=== PATIENT | male | born 1965 | race Caucasian/White ===

== ENCOUNTER 2017-07-09 03:47 | Emergency (ER) | payer OTHER ==
[~2017-07-09] VITALS: Ht 177.8 cm; Wt 170.1 kg
[~2017-07-09 03:47] MED LIST: ACETAMINOPHEN-1 EAC1 PO; PENICILLIN V P500 MG PO; PENICILLIN VK500 MG PO; PREDNISONE 20 M20 M1 PO
[2017-07-09 04:59] VITALS: BP 148/100
== END 2017-07-09 05:03 ==
LOC: M.ERS 03:47
DX: S80.02XA Contusion of left knee, initial encounter (principal); S80.01XA Contusion of right knee, initial encounter; S70.02XA Contusion of left hip, initial encounter; V47.6XXA Car passenger injured in collision with fixed or stationary object in traffic accident, initial encounter; Y93.89 Activity, other specified; Y92.89 Other specified places as the place of occurrence of the external cause; Y99.8 Other external cause status

== ENCOUNTER 2020-09-10 17:31 | Inpatient (IN) | payer MEDICAID ==
[~2020-09-10] VITALS: Ht 188 cm; Wt 192.5 kg
--- NOTE | ~2020-09-10 | EMS ---
[place] [address] EMS Patient Care Report Name: ROLF SAMS Room: [address] IN [facility]#: [id number] Admission: 09/10/20 Attend Phys: Rohini Hylton Discharge: Date of : 67 Report #: [id number] THIS REPORT FOR: //name// Report Transmitted: 09/16/2020 14:37 EMS Care Summary [facility] [employer] [facility] Incident [id number] @ 09/10/2020 16:41 Incident Location [address] [place] [address] Patient ROLF SAMS Male, 54 Years 1965 Patient Address [address] [place] [address] Patient History Chronic Obstructive Pulmonary Disease (COPD),Morbid Obesity, Chief Complaint Shortness Of Breath Disposition Transported [place] Dispatch Reason Breathing Problem Transported To [facility] Narrative Med 1 was dispatched for a [age] year-old male c/o shortness pf breath for the last two days due to his COPD. upon arrival, the patients friend met us at the door and directed us into the kitchen where the patient sat in a office roll around chair leaving against the refrigerator and he was smoking a cigarette. I told the patient," You will need to extinguish that cigarette so that we can provide care to you." The patient mumbled something under his breath and angrily placed the cigarette in the krissy tray. Upon assessment of the patient he had urinated on the chair and himself. The friend reported that [facility] [address] [place] [address] EMS Patient Care Report Name: ROLF SAMS Room: [address] IN [facility].#: [id number] Admission: 09/10/20 Attend Phys: Rohini Hylton Discharge: Date of : 67 Report #: [id number] he had been in the living room and he did the same all over the couch. The patient was yelling at the EMS crew as we were getting vitals and trying to figure out how to move the patient from the chair to the stretcher. Due to the patients weight 550 pounds and he stated," I can not use my feet" it was easiest to place a blanket under his arms and lift him up and moved the stretcher under him. Patient was secured to the stretcher via seatbelts and moved to the ambulance without incident. In the ambulance, the patient was belligerent and kept swinging his arms at the crew. IV access was established in the patients left AC with a 20 GA IV catheter. Patient was given 2 milligrams of Midazolam due to his yelling and swinging at the crew. Patient had been placed on Oxygen in the house via NRB and given a breathing TX of duoneb. Patients lung sounds were decreased on the left side and rales on the right. Patient was monitored through out transport. Hospital report was given via radio with no questions or orders received or requested. Med 1 arrived at the hospital. Patient was moved into the ER without incident to ER room 2. Patient care was transferred to ER staff. Med 1 returned back into service. [id number] Lenin Initial Vitals @17:10P: 104,R: 14,BP: 174/98,GCS: 13,EtCO2: 36,SpO2: 94,Revised Trauma: 12, @17:05P: 72,R: 72,BP: 170/90,Pain: 0/10,GCS: 15,Glucose: 88,SpO2: 72,Revised Trauma: 11, Assessments @17:03MENTAL:No Abnormalities,SKIN:Cold,Pale,HEENT:Neck/Airway: Other,Head/Face: No Abnormalities,LUNG SOUNDS:General: No Abnormalities,ABDOMEN:General: No Abnormalities,PELVIS//GI:EXTREMITIES:Left Arm: Edema,Left Arm: Weakness,Right Arm: Weakness,Right Leg: Edema,Left Leg: Edema,Left Leg: Weakness,Right Arm: Edema,Right Leg: Weakness,PULSE:NEURO:No Abnormalities, Impression Respiratory disorder Procedures @17:05Normal Saline (.9% NaCl) 10cc (20 ga) Site: Antecubital-LeftResponse: UnchangedSucceeded@17:06Midazolam - 2 Milligrams (mg) - Intravenous (IV)Response: Improved@16:48Oxygen FlowRate: 12 Device: Non Re-breather Mask (NRB) Response: [place] [address] EMS Patient Care Report Name: LATRELLROLF Breonna Room: [address] IN [facility]#: [id number] Admission: 09/10/20 Attend Phys: Rohini Hylton Discharge: Date of : 67 Report #: [id number] Timeline 16:41,Call Received 16:41,Dispatched 16:43,En Route 16:44,On Scene 16:45,At Patient 16:48,Oxygen FlowRate: 12 Device: Non Re-breather Mask (NRB) Response: ImprovedSucceeded, 17:05,BP: 170/90 M,PULSE: 72,RR: 72 R,SPO2: 72 Ox,ETCO2: ,B,PAIN: 0,GCS: 15, 17:05,Normal Saline (.9% NaCl) 10cc 20 ga Site: Antecubital-Left,Response: UnchangedSucceeded, 17:06,Midazolam - 2 Milligrams (mg) - Intravenous (IV),Response: Improved 17:09,Depart Scene 17:10,BP: 174/98 M,PULSE: 104,RR: 14 R,SPO2: 94 Ox,ETCO2: 36 ,BG: ,PAIN: ,GCS: 13, 17:27,At Destination 17:59,Call Closed 17:59,In District Disclaimer v1.1 Copyright 2020 [employer] This EMS Care Summary contains data elements from the applicable legal record (which may be displayed differently). It is designed to provide pertinent information for the following purposes: continuity of care, clinical quality, and state data reporting. The complete legal record is available to ED staff and administrators of the receiving hospital in ES's Patient Tracker. All data is provided "as is."
[2020-09-10 17:39] VITALS: BP 125/79
[2020-09-10 18:02] LABS: ABSOLUTE LYMPHOCYTES 1.5 thou/uL (0.8-5.3); ABSOLUTE MONOCYTES 0.5 thou/uL (0.0-1.2); ABSOLUTE NEUTROPHILS 10.8 thou/uL (1.6-8.1); BASOPHILS 0.3 %; HEMATOCRIT 36.7 % (42.0-52.0); HEMOGLOBIN 11.3 gm/dL (14.0-18.0); LYMPHOCYTES 11.6 %; MCHC 30.9 g/dL (28.0-37.0); MCV 80.9 fL (80.0-100.0); MONOCYTES 3.8 %; MPV 7.9 fl. (7.2-11.1); NUCLEATED RBCS 0 /100WBC; PLATELET COUNT* 256 thou/uL (150-400); POLYS 84.3 %; RBC 4.54 mil/uL (4.50-6.00); RDW-CV 18.7 % (10.5-14.5); WBC 12.8 thou/uL (4.0-11.0)
[2020-09-10 18:06] LABS: BE 0.4 mmol/L (-2 to +3); PO2 102.3 mmHg (75.0-100.0)
[2020-09-10 18:09] LABS: PCO2 91.5 mmHg (35.0-45.0); pH 7.158 (7.340-7.450)
[2020-09-10 18:09] LABS: APTT 26.9 Seconds (25.0-31.3); CALCIUM 8.2 mg/dL (8.5-10.1); INR 1.9; PROTIME 19.5 Seconds (9.20-11.50)
[2020-09-10 18:13] LABS: POTASSIUM 6.2 mmol/L (3.5-5.1)
[2020-09-10 18:29] LABS: ALBUMIN 2.4 g/dL (3.4-5.0); MAGNESIUM 2.1 mg/dL (1.8-2.4); TOTAL PROTEIN 7.7 g/dL (6.4-8.2)
[2020-09-10 20:21] LABS: BE 2.7 mmol/L (-2 to +3); PO2 98.5 mmHg (75.0-100.0); pH 7.321 (7.340-7.450)
[2020-09-10 20:25] LABS: PCO2 59.3 mmHg (35.0-45.0)
[2020-09-10 20:30] VITALS: BP 140/97
[2020-09-10 21:00] VITALS: BP 143/92
[2020-09-10 21:20] LABS: URINE BLOOD 1+ (Negative); URINE CLARITY CLOUDY; URINE COLOR DARK YELLOW; URINE GLUCOSE-RANDOM NEGATIVE (Negative); URINE KETONES TRACE (Negative); URINE NITRITE-REFLEX NEGATIVE (Negative); URINE PROTEIN 2+ (Negative); URINE SPECIFIC GRAVITY 1.015 (1.005-1.030)
[2020-09-10 21:27] LABS: ICTOTEST (BILI CONFIRMATORY) Positive (Negative); URINE BILIRUBIN 1+ (Negative); URINE LEUKOCYTES-REFLEX 2+ (Negative)
[2020-09-10 21:30] LABS: SQUAMOUS 4-10 Moderate /LPF (0-3); TRIPLE PHOSPHATE CRYSTALS >10 Many /LPF (None Seen)
[2020-09-10 21:31] LABS: BACTERIA-REFLEX >30 Many /HPF (None Seen); MUCUS None Seen strn/LPF (None Seen); URINE RBC 0-2 Rare /HPF (0-2); URINE WBC-REFLEX 6-15 Few /HPF (0-5)
[2020-09-10 21:33] LABS: HYALINE CASTS 4-10 Moderate /LPF (None Seen)
[2020-09-10 22:00] VITALS: BP 131/97
[2020-09-10 23:01] VITALS: BP 150/100
[2020-09-11] VITALS (25 sets, daily range): BP systolic 105–169; BP diastolic 60–112
[2020-09-11 03:49] LABS: CALCIUM 8.2 mg/dL (8.5-10.1); CREATININE 1.3 mg/dL (0.6-1.3)
[2020-09-11 03:56] LABS: POTASSIUM 4.8 mmol/L (3.5-5.1)
[2020-09-11 04:42] LABS: HEMATOCRIT 34.1 % (42.0-52.0); HEMOGLOBIN 10.6 gm/dL (14.0-18.0); MCH 25.1 pg (26.0-34.0); MCHC 31.2 g/dL (28.0-37.0); MCV 80.3 fL (80.0-100.0); MPV 8.3 fl. (7.2-11.1); RBC 4.24 mil/uL (4.50-6.00); RDW-CV 18.5 % (10.5-14.5); WBC 9.1 thou/uL (4.0-11.0)
--- NOTE | 2020-09-11 13:49 | 2DMMODE ---
[place] [address] 2 D/M-MODE ECHOCARDIOGRAM Name: LATRELLROLF Ravi Room: [address] IN .R.#: [id number] Admission: 09/10/20 Attend Phys: Jatinder Riley Discharge: Date of : 67 Date of Service: 09/11/20 1349 Report #: [id number] THIS REPORT FOR: cc: FAM - No family physician/PCP LETA - No family physician/PCP Ramez Parker MD [facility] ~ APPROVED REPORT Study performed: 09/11/2020 10:06:06 EXAM: Comprehensive 2D, Doppler, and color-flow Echocardiogram Patient Location: Bedside BSA: 3.15 HR: 82 bpm BP: 113/70 mmHg Other Information Study Quality: Technically Difficult Technically limited study due to body habitus, poor endocardial definition, inability to position patient. Indications Congestive Heart Failure Echo Enhancing Agent Indication: Endocardial border delineation Agent(s) / Amount(s) Used: Definity 4 cc 2D Dimensions IVSd: 15.30 (7-11mm) LVOT Diam: 20.14 (18-24mm) LVDd: 52.32 mm PWd: 18.45 (7-11mm) Ascending Ao: 40.14 (22-36mm) LVDs: 35.44 (25-40mm) Aortic Root: 31.31 mm Volumes Left Atrial Volume (Systole) LA ESV Index: 21.30 mL/m2 Aortic Valve AoV Peak Luis.: 1.74 m/s AO Peak Gr.: 12.05 mmHg LVOT Max P.88 mmHg AO Mean Gr.: 6.58 mmHg LVOT [place]66 [place] [address] 2 D/M-MODE ECHOCARDIOGRAM Name: ROLF SAMS Room: [address] IN [facility].#: [id number] Admission: 09/10/20 Attend Phys: Jatinder Riley Discharge: Date of : 67 Date of Service: 09/11/20 1349 Report #: [id number] LVOT Max V: 1.10 m/s AO V2 VTI: 30.61 cm LVOT Mean V: 0.77 m/s BOB (VTI): 2.92 cm2 LVOT V1 VTI: 28.00 cm Mitral Valve E/A Ratio: 1.50 MV Decel. Time: 97.14 ms MV E Max Luis.: 0.49 m/s MV PHT: 28.17 ms MVA (PHT): 7.81 cm2 TDI E/Lateral E': 7.00 E/Medial E': 7.00 Medial E' Luis.: 0.07 m/s Lateral E' Luis.: 0.07 m/s Pulmonary Valve PV Peak Luis.: 0.89 m/s PV Peak Gr.: 3.15 mmHg Tricuspid Valve RAP Estimate: 20.00 mmHg TR Peak Gr.: 27.19 mmHg RVSP: 47.19 mmHg PA Pressure: 47.19 mmHg Left Ventricle The left ventricle is normal size. There is moderate diffuse hypokinesis of left ventricular wall motion. Moderate concentric left ventricular hypertrophy. Left ventricular systolic function is moderately decreased. LVEF is 35-40%. Right Ventricle Right ventricle is mildly dilated. The right ventricular systolic function is normal. Atria The left atrium size is normal. Right atrium is dilated. Aortic Valve Mild aortic valve sclerosis. No aortic regurgitation is present. There is no aortic valvular stenosis. Mitral Valve The mitral valve is normal in structure. There is no mitral valve regurgitation noted. No evidence of mitral valve stenosis[place] [address] 2 D/M-MODE ECHOCARDIOGRAM Name: ROLF SAMS Room: [address]#: [id number] Admission: 09/10/20 Attend Phys: Jatinder Riley Discharge: Date of : 67 Date of Service: 09/11/20 1349 Report #: [id number] The tricuspid valve is normal in structure. Mild tricuspid regurgitation. Pulmonic Valve The pulmonary valve is normal in structure. There is no pulmonic valvular regurgitation. Great Vessels The aortic root is normal in size. The ascending aorta is mildly dilated. IVC is dilated. Pericardium Mild pericardial effusion. <Conclusion> The left ventricle is normal size. Moderate concentric left ventricular hypertrophy. Left ventricular systolic function is moderately decreased. LVEF is 35-40%. Right ventricle is mildly dilated. The left atrium size is normal. Mild aortic valve sclerosis. No aortic regurgitation is present. There is no aortic valvular stenosis. The mitral valve is normal in structure. The tricuspid valve is normal in structure. Mild tricuspid regurgitation. IVC is dilated. Mild pericardial effusion. There is moderate diffuse hypokinesis of left ventricular wall motion. <ELECTRONICALLY SIGNED> By: Ramez Parker MD, FACC 09/11/20 1349 48 1349 Ramez Parker MD, FACC /INF
--- NOTE | 2020-09-11 14:24 | EKG ---
[place] [address] ELECTROCARDIOGRAM REPORT Name: ROLF SAMS Room: [address] IN ..#: [id number] Admission: 09/10/20 Attend Phys: Jatinder Riley Discharge: Date of : 67 Date of Service: 09/10/20 1735 Report #: [id number] THIS REPORT FOR: //name// [facility] ED Test Date: 2020-09-10 Test Time: 17:35:54 Pat Name: ROLF SAMS Department: Room: [facility] Gender: M Residential Instructor: WALDEMAR : 1965 Requested By: Salo Gatica Order Number: [id number] MD: Ramez Parker Measurements Intervals [place] Rate: 128 P: 57 [place]: 133 QRS: -47 QRSD: 155 T: -18 QT: 318 QTc: 464 Interpretive Statements Sinus tachycardia RBBB and LAFB Baseline wander in lead(s) I,III,aVL No previous ECG available for comparison Electronically Signed On 09-11-2020 14:24:24 CDT by Ramez Parker [email or web address] <ELECTRONICALLY SIGNED> By: Ramez Parker MD, [facility] 09/11/20 1424 1735 1735 Ramez Parker MD, [facility] /EPI
[2020-09-11 18:16] LABS: CALCIUM 8.3 mg/dL (8.5-10.1); CREATININE 1.1 mg/dL (0.6-1.3); MAGNESIUM 2.1 mg/dL (1.8-2.4); POTASSIUM 3.9 mmol/L (3.5-5.1)
[2020-09-12] VITALS (12 sets, daily range): BP systolic 86–120; BP diastolic 47–73
[2020-09-12 02:06] LABS: GLYCOHEMOGLOBIN (HGB A1C) 6.3 % (4.8-5.6)
[2020-09-12 03:57] LABS: HEMATOCRIT 33.4 % (42.0-52.0); HEMOGLOBIN 10.5 gm/dL (14.0-18.0); MCH 25.2 pg (26.0-34.0); MCHC 31.5 g/dL (28.0-37.0); MPV 8.1 fl. (7.2-11.1); NUCLEATED RBCS 0 /100WBC; PLATELET COUNT* 163 thou/uL (150-400); RBC 4.17 mil/uL (4.50-6.00); RDW-CV 18.2 % (10.5-14.5); WBC 9.3 thou/uL (4.0-11.0)
[2020-09-12 04:14] LABS: ALBUMIN 1.7 g/dL (3.4-5.0); CALCIUM 8.1 mg/dL (8.5-10.1); CREATININE 1.1 mg/dL (0.6-1.3); MAGNESIUM 2.1 mg/dL (1.8-2.4); POTASSIUM 4.4 mmol/L (3.5-5.1); TOTAL BILIRUBIN 1.1 mg/dL (<0.1-1.0); TOTAL PROTEIN 6.2 g/dL (6.4-8.2)
[2020-09-12 04:15] LABS: PHOSPHORUS* 3.1 mg/dL (2.5-4.9)
[2020-09-12 05:29] LABS: ABSOLUTE LYMPHOCYTES 0.4 thou/uL (0.8-5.3); ABSOLUTE MONOCYTES 0.3 thou/uL (0.0-1.2); ABSOLUTE NEUTROPHILS 8.6 thou/uL (1.6-8.1); ANISOCYTOSIS 1+; PLATELET ESTIMATE ADEQUATE; POIKILOCYTOSIS 1+
[2020-09-12 08:34] LABS: BE 6.5 mmol/L (-2 to +3); PO2 77.7 mmHg (75.0-100.0); pH 7.405 (7.340-7.450)
[2020-09-12 17:27] LABS: ABSOLUTE LYMPHOCYTES 0.4 thou/uL (0.8-5.3); ABSOLUTE MONOCYTES 0.3 thou/uL (0.0-1.2); ABSOLUTE NEUTROPHILS 8.3 thou/uL (1.6-8.1); BASOPHILS 0.2 %; HEMATOCRIT 36.3 % (42.0-52.0); HEMOGLOBIN 11.3 gm/dL (14.0-18.0); LYMPHOCYTES 4.3 %; MCHC 31.2 g/dL (28.0-37.0); MCV 80.2 fL (80.0-100.0); MONOCYTES 3.1 %; MPV 8.3 fl. (7.2-11.1); NUCLEATED RBCS 0 /100WBC; PLATELET COUNT* 156 thou/uL (150-400); POLYS 92.4 %; RBC 4.52 mil/uL (4.50-6.00); RDW-CV 18.6 % (10.5-14.5)
[2020-09-12 17:38] LABS: CALCIUM 8.4 mg/dL (8.5-10.1); CREATININE 1.2 mg/dL (0.6-1.3); MAGNESIUM 2.2 mg/dL (1.8-2.4); POTASSIUM 4.8 mmol/L (3.5-5.1)
[2020-09-12 18:01] LABS: AMP/METHAMP POSITIVE (Negative); BARBITURATES Negative (Negative); BENZODIAZEPINES POSITIVE (Negative); COCAINE Negative (Negative); METHADONE Negative (Negative); OPIATES Negative (Negative); PCP Negative (Negative); THC Negative (Negative)
[2020-09-13] VITALS (34 sets, daily range): BP systolic 124–189; BP diastolic 79–129
[2020-09-13 03:13] LABS: HEMATOCRIT 37.9 % (42.0-52.0); HEMOGLOBIN 11.9 gm/dL (14.0-18.0); MCH 25.1 pg (26.0-34.0); MCHC 31.4 g/dL (28.0-37.0); MCV 79.8 fL (80.0-100.0); MPV 7.7 fl. (7.2-11.1); RBC 4.75 mil/uL (4.50-6.00); RDW-CV 18.6 % (10.5-14.5)
[2020-09-13 03:41] LABS: ALBUMIN 2.1 g/dL (3.4-5.0); CALCIUM 8.4 mg/dL (8.5-10.1); CREATININE 1.2 mg/dL (0.6-1.3); MAGNESIUM 2.1 mg/dL (1.8-2.4); POTASSIUM 4.9 mmol/L (3.5-5.1); TOTAL PROTEIN 7.1 g/dL (6.4-8.2)
[2020-09-13 06:06] LABS: HEPATITIS B SURFACE AG Negative (Negative)
[2020-09-13 13:09] LABS: HEMATOCRIT 39.5 % (42.0-52.0); HEMOGLOBIN 12.3 gm/dL (14.0-18.0); MCHC 31.2 g/dL (28.0-37.0); MPV 8.4 fl. (7.2-11.1); NUCLEATED RBCS 0 /100WBC; PLATELET COUNT* 152 thou/uL (150-400); RBC 4.94 mil/uL (4.50-6.00); RDW-CV 19.3 % (10.5-14.5)
[2020-09-13 13:20] LABS: CALCIUM 8.4 mg/dL (8.5-10.1); CREATININE 1.2 mg/dL (0.6-1.3); MAGNESIUM 2.1 mg/dL (1.8-2.4); POTASSIUM 4.7 mmol/L (3.5-5.1)
[2020-09-13 13:36] LABS: ABSOLUTE LYMPHOCYTES 0.8 thou/uL (0.8-5.3); ABSOLUTE MONOCYTES 0.1 thou/uL (0.0-1.2); ABSOLUTE NEUTROPHILS 8.1 thou/uL (1.6-8.1); PLATELET ESTIMATE ADEQUATE
[2020-09-14] VITALS (28 sets, daily range): BP systolic 127–192; BP diastolic 66–116
[2020-09-14 03:49] LABS: ABSOLUTE BASOPHILS 0.1 thou/uL (0.0-0.2); ABSOLUTE LYMPHOCYTES 0.4 thou/uL (0.8-5.3); ABSOLUTE MONOCYTES 0.3 thou/uL (0.0-1.2); ABSOLUTE NEUTROPHILS 6.6 thou/uL (1.6-8.1); HEMATOCRIT 39.1 % (42.0-52.0); HEMOGLOBIN 12.5 gm/dL (14.0-18.0); MCH 25.2 pg (26.0-34.0); MCHC 31.9 g/dL (28.0-37.0); MONOCYTES 3.6 %; MPV 8.3 fl. (7.2-11.1); NUCLEATED RBCS 0 /100WBC; PLATELET COUNT* 142 thou/uL (150-400); POLYS 90.4 %; RBC 4.94 mil/uL (4.50-6.00); RDW-CV 18.9 % (10.5-14.5); WBC 7.3 thou/uL (4.0-11.0)
[2020-09-14 04:15] LABS: ALBUMIN 1.9 g/dL (3.4-5.0); CREATININE 1.2 mg/dL (0.6-1.3); PHOSPHORUS* 4.1 mg/dL (2.5-4.9); POTASSIUM 4.3 mmol/L (3.5-5.1); TOTAL BILIRUBIN 1.1 mg/dL (<0.1-1.0); TOTAL PROTEIN 6.8 g/dL (6.4-8.2)
[2020-09-14 17:03] LABS: CALCIUM 8.4 mg/dL (8.5-10.1); MAGNESIUM 2.1 mg/dL (1.8-2.4); POTASSIUM 4.1 mmol/L (3.5-5.1)
[2020-09-15] VITALS (26 sets, daily range): BP systolic 135–177; BP diastolic 78–105
[2020-09-15 03:33] LABS: ABSOLUTE LYMPHOCYTES 0.4 thou/uL (0.8-5.3); ABSOLUTE MONOCYTES 0.2 thou/uL (0.0-1.2); ABSOLUTE NEUTROPHILS 4.9 thou/uL (1.6-8.1); BASOPHILS 0.2 %; EOSINOPHILS 0.1 %; HEMATOCRIT 41.8 % (42.0-52.0); HEMOGLOBIN 13.1 gm/dL (14.0-18.0); LYMPHOCYTES 6.7 %; MCHC 31.3 g/dL (28.0-37.0); MONOCYTES 3.3 %; MPV 8.3 fl. (7.2-11.1); NUCLEATED RBCS 0 /100WBC; PLATELET COUNT* 122 thou/uL (150-400); POLYS 89.7 %; RBC 5.23 mil/uL (4.50-6.00); RDW-CV 19.1 % (10.5-14.5); WBC 5.4 thou/uL (4.0-11.0)
[2020-09-15 03:51] LABS: ALBUMIN 2.4 g/dL (3.4-5.0); CALCIUM 8.5 mg/dL (8.5-10.1); TOTAL BILIRUBIN 1.4 mg/dL (<0.1-1.0); TOTAL PROTEIN 6.6 g/dL (6.4-8.2)
[2020-09-16] VITALS (36 sets, daily range): BP systolic 111–177; BP diastolic 57–109
[2020-09-16 04:14] LABS: ABSOLUTE LYMPHOCYTES 0.6 thou/uL (0.8-5.3); ABSOLUTE MONOCYTES 0.5 thou/uL (0.0-1.2); ABSOLUTE NEUTROPHILS 4.8 thou/uL (1.6-8.1); BASOPHILS 0.2 %; HEMOGLOBIN 12.8 gm/dL (14.0-18.0); LYMPHOCYTES 10.4 %; MCH 25.1 pg (26.0-34.0); MCHC 31.2 g/dL (28.0-37.0); MCV 80.5 fL (80.0-100.0); MONOCYTES 8.7 %; MPV 8.6 fl. (7.2-11.1); NUCLEATED RBCS 0 /100WBC; PLATELET COUNT* 127 thou/uL (150-400); POLYS 80.7 %; RDW-CV 19.5 % (10.5-14.5)
[2020-09-16 04:28] LABS: ALBUMIN 2.6 g/dL (3.4-5.0); CALCIUM 8.5 mg/dL (8.5-10.1); CREATININE 0.8 mg/dL (0.6-1.3); POTASSIUM 4.2 mmol/L (3.5-5.1); TOTAL PROTEIN 6.2 g/dL (6.4-8.2)
[2020-09-16 10:14] LABS: INR 1.4
[2020-09-16 11:24] LABS: BE 9.4 mmol/L (-2 to +3); PO2 77.3 mmHg (75.0-100.0); pH 7.357 (7.340-7.450)
[2020-09-16 11:26] LABS: PCO2 68.6 mmHg (35.0-45.0)
--- NOTE | 2020-09-16 15:08 | CON ---
[address] [address] CONSULTATION Name: ROLF SAMS Room: [address] IN .R.#: [id number] Admission: 09/10/20 Attend Phys: Rohini Hylton Discharge: Date of : 67 Report #: [id number] THIS REPORT FOR: cc: LETA - No family physician/PCP LETA - No family physician/PCP Migue Ervin MD ~ DOC #: [id number] Migue Ervin MD DATE OF CONSULTATION: 09/11/2020 Consult has been requested by the Hospitalist service. INDICATION FOR CONSULTATION: Ventilator management. HISTORY OF PRESENT ILLNESS: This is a 54-year-old gentleman. He has a history of morbid obesity, body mass index is 62. He has a history consistent with COPD as well as obstructive sleep apnea. It is not known to me as to whether the patient was previously diagnosed with these conditions. The patient was now found to be in respiratory distress. In fact, he was smoking, even though his O2 saturations were in the 70s. The patient also is reported to have been agitated and required endotracheal intubation for respiratory distress. The patient currently is on the ventilator. He did have significant hypercarbia and a low pH of 7.158 on initial arterial blood gases. He currently is on 50% FIO2 with 5 of PEEP. The patient is receiving propofol at 50 for sedation. He initially was also in acute renal failure. His creatinine was 2.0. He was bolused with IV fluids. His creatinine subsequently improved to 1.3. He does not have current running IV fluids. The patient is on the ventilator and therefore is unable to provide a further history or review of systems. PAST MEDICAL HISTORY: Morbid obesity, body mass index is 62. There is a clinical history consistent with COPD and obstructive sleep apnea, it is not known to me as to whether the patient was diagnosed with these in the past. Chronic venous insufficiency in lower extremities. SOCIAL HISTORY: He is an active smoker, further details are not available. ALLERGIES: Unknown. FAMILY HISTORY: Unknown. HOME MEDICATIONS: Unknown. Current medications in [employer] reviewed. PHYSICAL EXAMINATION: VITAL SIGNS: He is sedated with propofol at 50, has a pulse of 77 and blood pressure of 121/82. He is saturating 95%. [place] [address] CONSULTATION Name: LATRELLROLF Breonna Room: [address]#: [id number] Admission: 09/10/20 Attend Phys: Rohini Hylton Discharge: Date of : 67 Report #: [id number] ventilation, tidal volume is 600, AC rate is set at 20. He was not overbreathing the ventilator. Heart rate was 77. He was afebrile with a temperature of 35.8. HEENT: Head is normocephalic and atraumatic. Endotracheal tube was in good position. NECK: Does not show raised JVP, asymmetry, mass or lymph nodes. CHEST: Symmetrical expansion on inspection and palpation. On auscultation, breath sounds are bilaterally equal, but decreased. I do not hear any added sounds. HEART: Regular. There is no murmur. ABDOMEN: Soft and nontender. EXTREMITIES: Lower extremities show 1+ edema. There is significant chronic venous changes noted on his skin. NEUROLOGIC: He did move all extremities to pain. No focal deficit identified. LABORATORY DATA: The patient's chest x-ray is reviewed. There is some increase in reticular markings, which could indicate atypical infiltrates, chronic changes and mild increase in pulmonary vascular congestion can also lead to this picture. I do not have a previous x-ray available to compare. The patient's arterial blood gas as well as lab work is in [facility] and this is reviewed. The patient has blood cultures positive for gram-negative rods. His COVID-19 antigen was negative. ASSESSMENT AND PLAN: 1. Acute on chronic hypercarbic and hypoxemic respiratory failure. I will go ahead and increase his tidal volume to 650, which will be 8 mL/kg ideal body weight, decrease rate to 16, continue to titrate FIO2, increase PEEP to 8 considering morbid obesity. We will continue with propofol. We will add a fentanyl drip, which hopefully will let us cut down his propofol. We will assess tomorrow for weaning. If he is not ready for weaning tomorrow, then I will consider switching his propofol over to Precedex tomorrow. Follow propofol related labs. 2. Pulmonary infiltrates/gram-negative bacteremia. For now, I ordered Zosyn as well as Levaquin. We will reassess antibiotics once final cultures are available. I did order a sputum culture as well as a nasal swab for MRSA now. My suspicion of MRSA is low; therefore, not covering for now, but if he deteriorates, then I will consider linezolid. 3. Chronic obstructive pulmonary disease exacerbation. Agree with nebulized bronchodilators as well as Solu-Medrol as currently prescribed. 4. Obstructive sleep apnea. He likely will need a BiPAP. When he is extubated, we will plan to arrange a Trilogy for him before his discharge. 5. Evaluation for thromboembolic phenomena/cardiac function, we will do an echo. We will also do venous Dopplers. Hold off on CTA chest considering renal failure. [facility] [address] [place] [address] CONSULTATION Name: ROLF SAMS Room: [address] IN [facility]#: [id number] Admission: 09/10/20 Attend Phys: Rohini Hylton Discharge: Date of : 67 Report #: [id number] 6. Acute renal failure. I have started IV fluids at 50. Repeat labs at 5:00 p.m. and then adjust IV fluids rate. 7. Deep venous thrombosis prophylaxis, on Lovenox. 8. Gastrointestinal prophylaxis, on Protonix. 9. Clostridium difficile prophylaxis. We will go ahead and add Lactinex. The patient is critically ill at this time. Total time spent providing critical care to this patient today exceeds 45 minutes. Migue Ervin MD AP/NIS <ELECTRONICALLY SIGNED> By: Migue Ervin MD 09/16/20 1508 1128 [id number] Ervin MD /nt
[2020-09-16 17:27] LABS: ANION GAP < 0 mmol/L (7-16); BUN 37 mg/dL (7-18); CALCIUM 8.3 mg/dL (8.5-10.1); CHLORIDE 110 mmol/L (98-107); CO2 39 mmol/L (21-32); CREATININE 0.8 mg/dL (0.6-1.3); GLUCOSE 172 mg/dL (70-99); POTASSIUM 4.5 mmol/L (3.5-5.1); SODIUM 148 mmol/L (136-145)
[2020-09-17] VITALS (17 sets, daily range): BP systolic 104–158; BP diastolic 62–83
[2020-09-17 04:37] LABS: HEMATOCRIT 38.1 % (42.0-52.0); HEMOGLOBIN 11.8 gm/dL (14.0-18.0); MCH 24.8 pg (26.0-34.0); MCHC 30.9 g/dL (28.0-37.0); MCV 80.1 fL (80.0-100.0); MPV 8.4 fl. (7.2-11.1); RBC 4.76 mil/uL (4.50-6.00); RDW-CV 19.1 % (10.5-14.5)
[2020-09-17 05:05] LABS: ALBUMIN 2.5 g/dL (3.4-5.0); ALKALINE PHOSPHATASE 59 U/L (46-116); ANION GAP < 0 mmol/L (7-16); BUN 34 mg/dL (7-18); CALCIUM 8.1 mg/dL (8.5-10.1); CHLORIDE 109 mmol/L (98-107); CO2 39 mmol/L (21-32); CREATININE 0.7 mg/dL (0.6-1.3); GLUCOSE 112 mg/dL (70-99); MAGNESIUM 1.9 mg/dL (1.8-2.4); POTASSIUM 4.3 mmol/L (3.5-5.1); SGOT 27 U/L (15-37); SGPT 140 U/L (30-65); SODIUM 147 mmol/L (136-145); TOTAL BILIRUBIN 1.1 mg/dL (<0.1-1.0); TOTAL PROTEIN 5.7 g/dL (6.4-8.2)
--- NOTE | 2020-09-17 14:52 | CON ---
[address] [address] CONSULTATION Name: ROLF SAMS Room: [address] IN .R.#: [id number] Admission: 09/10/20 Attend Phys: Rohini Hylton Discharge: Date of : 67 Report #: [id number] THIS REPORT FOR: cc: FAM - No family physician/PCP FAM - No family physician/PCP Jeanette Beach MD ~ DOC #: [id number] Jeanette Beach MD DATE OF CONSULTATION: 09/13/2020 REASON FOR CONSULTATION: Coffee-ground material noted in the NG tube aspirate. HISTORY OF PRESENT ILLNESS: This is a 54-year-old male with history of hypercapnic COPD and morbid obesity who presented to emergency room on 09/10/2020. At that time, the patient's oxygen saturation was 70%. The patient was intubated due to acute over chronic respiratory failure. He also has heart failure, which may have complicated his respiration. The patient takes Lovenox for history of DVT. His INR as of today is 1.9. The patient is intubated, so all the records have been obtained from other medical records. The patient currently is on antibiotics for bacteremia, gram-negative. He is sedated and nonresponsive. His hemoglobin this morning was 11.9 and on a repeat is 12.3. He has been initiated on Protonix drip after loading him with 80 mg of Protonix IV. PAST MEDICAL HISTORY: Significant for history of COPD, hyperkalemia, DVT, use of anticoagulation therapy, CHF, morbid obesity with a body mass index of 62, sleep apnea, venous insufficiency of lower extremities. ALLERGIES: Please refer to JUL. MEDICATIONS: Please refer to JUL. SOCIAL HISTORY: Please refer to the history and physical dictated on 09/10/2000. FAMILY HISTORY: Please refer to the history and physical dictated on 09/10/2000. PHYSICAL EXAMINATION: VITAL SIGNS: Reveals blood pressure of 184/119, respirations 16, pulse 75, temperature 99.3. The patient is intubated. ABDOMEN: [place] [address] CONSULTATION Name: LATRELLROLF W Room: [address] IN [facility]#: [id number] Admission: 09/10/20 Attend Phys: Rohini Hylton Discharge: Date of : 67 Report #: [id number] EXTREMITIES: There is bilateral pitting edema in the lower extremities. CARDIOVASCULAR: Regular rate. LABORATORY DATA: Reveal sodium of 142, potassium 4.7, BUN is 47, creatinine is 1.2, glucose is 164. ALT is 255, alkaline phosphatase 86, ALT is 606. Albumin is 2.1. Iron saturation is 4, B12 is 5000, hemoglobin A1c is 6.3. INR is 1.9. WBC is 9.0 with hemoglobin of 12.3 and platelets of 152. ASSESSMENT AND PLAN: The patient with a history of COPD and acute over chronic respiratory failure, who also have sleep apnea, was intubated since hospitalization. He also found to have bacteremia, on antibiotics. NG tube aspirate had some coffee-ground material, but hemoglobin is stable and the patient also hemodynamically stable. I agree with initiation of Protonix drip for now. We may switch it to IV Protonix b.i.d. later based on his hemoglobin. The patient also has elevated LFTs. I believe this is more acute over chronic liver disease. The patient also has elevated CPK, which may be an indicator of rhabdomyolysis, which may artificially increased LFTs. We will continue to monitor the patient. I would recommend checking LFTs in the morning and a GGT. Also, abdominal ultrasound to look at biliary tree. We will continue to follow up the patient. MD SEVEN Baca/HARPER/ELISHA <ELECTRONICALLY SIGNED> By: Jeanette Beach MD 09/17/20 1452 1245 1502Jeanette Beach MD /giles
--- NOTE | 2020-09-17 14:52 | CON ---
[address] [address] CONSULTATION Name: LATRELLROLF Breonna Room: [address] IN ..#: [id number] Admission: 09/10/20 Attend Phys: Rohini Hylton Discharge: Date of : 67 Report #: [id number] THIS REPORT FOR: cc: FAM - No family physician/PCP FAM - No family physician/PCP Jeanette Beach MD ~ DOC #: [id number] CEZAR Bravo DATE OF CONSULTATION: 09/16/2020 The patient does not have a PCP. Please note that at the time of this dictation, the patient was seen by myself. REASON FOR CONSULTATION: Elevated LFTs. HISTORY OF PRESENT ILLNESS: This is a 54-year-old male with a longstanding history of COPD and morbid obesity that was brought. EMS was called because he was staying at a friend's house and was having increased shortness of breath for the last 2 days prior to EMS arrival. When EMS was there, they noted that his sats were in the 70s, they were noticed that he was smoking a cigarette at the time of their arrival as well. He was then on BiPAP en route and then shortly thereafter. He has been intubated since that time. On admission, they questioned whether or not he has a GI bleed, but no obvious bleeding has been noted. He has not had a bowel movement since prior to admission and lactulose has been started. The patient on admission had elevated LFTs; total bilirubin was 3, alkaline phosphatase 111, ALT was 1005 and AST 1708. He did have a positive drug screen for meth and benzos, and his BNP was greater than 12,000. Since he has been intubated in here, he has bee getting albumin and his LFTs have all almost come back down to normal except his ALT and AST. Unable to obtain any history from the patient secondary to him being noncommunicative while on the ventilator and all of that has been obtained from his chart. ALLERGIES: No known drug allergies. MEDICATIONS FROM HOME: Unknown. PERSONAL HISTORY: COPD. SURGICAL HISTORY: Unknown. FAMILY HISTORY: Unknown. SOCIAL HISTORY: He is a tobacco user, and positive for meth noted on drug screen. The patient is morbidly obese at [address] [place] [address] CONSULTATION Name: LATRELLORLF Breonna Room: [address]#: [id number] Admission: 09/10/20 Attend Phys: Rohini Hylton Discharge: Date of : 67 Report #: [id number] REVIEW OF SYSTEMS: Twelve-point review of systems is essentially negative except what is mentioned in the HPI. PHYSICAL EXAMINATION: VITAL SIGNS: Temperature 36.8, pulse 53, respirations 16, blood pressure 153/90. HEART: Regular rate and rhythm. LUNGS: Diminished bilaterally with some expiratory wheezes noted. ABDOMEN: Soft, rotund, positive bowel sounds in all 4 quadrants, with no masses or tenderness noted, and an umbilical hernia noted. LABORATORY DATA: Hemoglobin is 12.8, white count is 6, platelets are 127. BUN is 40, creatinine is 0.8, his GFR is 101, total bilirubin now is 1, alkaline phosphatase is 67, ALT is 205, AST is 45, albumin is 2.6, total protein is 6.2. BNP on arrival was 12,173. IMPRESSION: 1. Elevated liver function tests, trending down. 2. Thrombocytopenia. 3. Constipation. 4. Acute respiratory failure secondary to chronic obstructive pulmonary disease. 5. Cardiomyopathy. 6. Drug use, methamphetamine. PLAN: 1. LFTs likely elevated secondary to shock liver and elevated BNP. 2. Obtain an abdominal ultrasound to check his liver status. 3. Continue his Protonix. 4. Further recommendations to be made once Dr. Beach sees the patient and the patient is able to give us a better history. Thank you for allowing us to participate in this patient's care. Please do not hesitate to call with any questions regarding this consult. MD YADIRA Baca/[place] [address] CONSULTATION Name: LATRELLROLF Room: [address] ADM IN .R.#: [id number] Admission: 09/10/20 Attend Phys: Rohini Hylton Discharge: Date of : 67 Report #: [id number] <ELECTRONICALLY SIGNED> By: Jeanette Beach MD 09/17/20 1452 0815 [id number] Beach MD /nt
[2020-09-18 03:55] VITALS: BP 133/82
[2020-09-18 04:54] LABS: HEMATOCRIT 41.7 % (42.0-52.0); HEMOGLOBIN 12.9 gm/dL (14.0-18.0); MCH 24.8 pg (26.0-34.0); MCV 80.2 fL (80.0-100.0); MPV 8.7 fl. (7.2-11.1); NUCLEATED RBCS 0 /100WBC; PLATELET COUNT* 134 thou/uL (150-400); RDW-CV 19.1 % (10.5-14.5); WBC 8.7 thou/uL (4.0-11.0)
[2020-09-18 05:36] LABS: ALBUMIN 2.8 g/dL (3.4-5.0); ALKALINE PHOSPHATASE 72 U/L (46-116); ANION GAP 1 mmol/L (7-16); BUN 31 mg/dL (7-18); CALCIUM 8.3 mg/dL (8.5-10.1); CHLORIDE 104 mmol/L (98-107); CO2 38 mmol/L (21-32); CREATININE 0.8 mg/dL (0.6-1.3); GLUCOSE 117 mg/dL (70-99); HDL CHOLESTEROL 19 mg/dL (>40); MAGNESIUM 1.9 mg/dL (1.8-2.4); POTASSIUM 4.8 mmol/L (3.5-5.1); SGOT 29 U/L (15-37); SGPT 130 U/L (30-65); SODIUM 143 mmol/L (136-145); TOTAL BILIRUBIN 1.5 mg/dL (<0.1-1.0); TRIGLYCERIDE 136 mg/dL (<150); TROPONIN-I LEVEL <0.06 ng/mL (<0.06); VLDL 27 mg/dL (<40)
[2020-09-18 05:42] LABS: SERUM ASSESSMENT Clear
[2020-09-18 06:34] LABS: ABSOLUTE LYMPHOCYTES 0.6 thou/uL (0.8-5.3); ABSOLUTE NEUTROPHILS 8.1 thou/uL (1.6-8.1); PLATELET ESTIMATE ADEQUATE
[2020-09-18 06:46] LABS: CHOLESTEROL 148 mg/dL (<200); LDL CHOLESTEROL 102 mg/dL (<100); TC:HDL 7.8 Ratio (Not establshd)
[2020-09-18 08:00] VITALS: BP 169/99
--- NOTE | 2020-09-18 10:18 | EKG ---
[place] [address] ELECTROCARDIOGRAM REPORT Name: ROLF SAMS Room: [address] ADM IN .R.#: [id number] Admission: 09/10/20 Attend Phys: Jatinder Riley Discharge: Date of : 67 Date of Service: 09/17/20 1638 Report #: [id number] THIS REPORT FOR: //name// 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1884 : 1965 Requested By: Sharon Ortega Order Number: [id number] Mayo MD: Diaz Alcaraz Measurements Intervals [place] Rate: 84 P: 57 WV: 153 QRS: -20 QRSD: 156 T: -26 QT: 390 QTc: 462 Interpretive Statements Sinus rhythm Probable left atrial enlargement Right bundle branch block Abnormal T, consider ischemia, lateral leads Compared to ECG 09/10/2020 17:35:54 Sinus tachycardia no longer present Electronically Signed On 09-18-2020 10:18:35 CDT by Diaz Alcaraz [email or web address] <ELECTRONICALLY SIGNED> By: Diaz Alcaraz MD, [facility] 09/18/20 1018 1638 1638 Diaz Alcaraz MD, FAC /EPI
[2020-09-18 14:41] VITALS: BP 136/62
[2020-09-18 16:30] VITALS: BP 127/77
[2020-09-18 20:34] VITALS: BP 106/65
[2020-09-19 00:05] VITALS: BP 99/75
[2020-09-19 04:00] VITALS: BP 104/64
[2020-09-19 04:27] LABS: ANION GAP < 0 mmol/L (7-16); BUN 25 mg/dL (7-18); CALCIUM 7.8 mg/dL (8.5-10.1); CHLORIDE 104 mmol/L (98-107); CO2 39 mmol/L (21-32); CREATININE 0.7 mg/dL (0.6-1.3); GLUCOSE 94 mg/dL (70-99); MAGNESIUM 1.8 mg/dL (1.8-2.4); SODIUM 142 mmol/L (136-145)
[2020-09-19 04:34] LABS: POTASSIUM 3.7 mmol/L (3.5-5.1)
[2020-09-19 07:27] LABS: BE 12.7 mmol/L (-2 to +3); PO2 83.6 mmHg (75.0-100.0); pH 7.437 (7.340-7.450)
[2020-09-19 07:28] LABS: PCO2 59.4 mmHg (35.0-45.0)
[2020-09-19 08:00] VITALS: BP 106/57
[2020-09-19 20:00] VITALS: BP 110/62
[2020-09-20] VITALS: BP 130/90
[2020-09-20 04:00] VITALS: BP 125/70
[2020-09-20 04:43] LABS: ABSOLUTE EOSINOPHILS 0.1 thou/uL (0.0-0.7); ABSOLUTE LYMPHOCYTES 2.4 thou/uL (0.8-5.3); ABSOLUTE MONOCYTES 0.6 thou/uL (0.0-1.2); ABSOLUTE NEUTROPHILS 9.1 thou/uL (1.6-8.1); BASOPHILS 0.1 %; EOSINOPHILS 0.7 %; HEMATOCRIT 38.2 % (42.0-52.0); HEMOGLOBIN 11.8 gm/dL (14.0-18.0); LYMPHOCYTES 19.3 %; MCH 24.9 pg (26.0-34.0); MCHC 30.8 g/dL (28.0-37.0); MCV 80.6 fL (80.0-100.0); MONOCYTES 5.2 %; MPV 8.9 fl. (7.2-11.1); NUCLEATED RBCS 0 /100WBC; PLATELET COUNT* 144 thou/uL (150-400); POLYS 74.7 %; RBC 4.74 mil/uL (4.50-6.00); RDW-CV 18.6 % (10.5-14.5); WBC 12.2 thou/uL (4.0-11.0)
[2020-09-20 05:23] LABS: ALBUMIN 2.4 g/dL (3.4-5.0); ALKALINE PHOSPHATASE 60 U/L (46-116); ANION GAP < 0 mmol/L (7-16); BUN 22 mg/dL (7-18); CHLORIDE 106 mmol/L (98-107); CO2 38 mmol/L (21-32); CREATININE 0.8 mg/dL (0.6-1.3); GLUCOSE 120 mg/dL (70-99); MAGNESIUM 1.8 mg/dL (1.8-2.4); POTASSIUM 4.2 mmol/L (3.5-5.1); SGOT 19 U/L (15-37); SGPT 78 U/L (30-65); SODIUM 141 mmol/L (136-145); TOTAL BILIRUBIN 0.8 mg/dL (<0.1-1.0); TOTAL PROTEIN 5.6 g/dL (6.4-8.2)
[2020-09-20 08:00] VITALS: BP 106/65
[2020-09-20 12:00] VITALS: BP 141/88
[2020-09-20 16:00] VITALS: BP 133/82
[2020-09-20 20:00] VITALS: BP 101/61
[2020-09-21 00:39] VITALS: BP 109/69
[2020-09-21 04:55] VITALS: BP 150/94
[2020-09-21 09:00] VITALS: BP 116/70
[2020-09-21 12:00] VITALS: BP 160/86
[2020-09-21 16:00] VITALS: BP 118/59
[2020-09-21 20:00] VITALS: BP 126/67
[2020-09-22 00:02] VITALS: BP 128/76
[2020-09-22 05:19] LABS: ALBUMIN 2.5 g/dL (3.4-5.0); ALKALINE PHOSPHATASE 68 U/L (46-116); ANION GAP < 0 mmol/L (7-16); BUN 27 mg/dL (7-18); CALCIUM 8.7 mg/dL (8.5-10.1); CHLORIDE 106 mmol/L (98-107); CO2 36 mmol/L (21-32); CREATININE 0.8 mg/dL (0.6-1.3); GLUCOSE 97 mg/dL (70-99); MAGNESIUM 1.7 mg/dL (1.8-2.4); SGOT 17 U/L (15-37); SGPT 61 U/L (30-65); SODIUM 141 mmol/L (136-145); TOTAL BILIRUBIN 0.9 mg/dL (<0.1-1.0); TOTAL PROTEIN 5.8 g/dL (6.4-8.2)
[2020-09-22 05:32] LABS: HEMATOCRIT 37.4 % (42.0-52.0); HEMOGLOBIN 11.6 gm/dL (14.0-18.0); MCH 24.7 pg (26.0-34.0); MCV 79.6 fL (80.0-100.0); MPV 8.8 fl. (7.2-11.1); RBC 4.69 mil/uL (4.50-6.00); RDW-CV 19.1 % (10.5-14.5); WBC 12.3 thou/uL (4.0-11.0)
[2020-09-22 08:00] VITALS: BP 130/80
[2020-09-22 16:00] VITALS: BP 125/83
[2020-09-22 20:30] VITALS: BP 106/79
[2020-09-23 04:15] VITALS: BP 133/81
[2020-09-23 08:00] VITALS: BP 148/90
[2020-09-23] MEDS ORDERED: COZAAR 50 MG TA50 M1 PO (08:48)
[2020-09-23] MEDS ORDERED: HUMALOG100 UNIT/1 SUBQ (08:48)
[2020-09-23] MEDS ORDERED: HYDROCODON-ACE1 EAC7 PO (08:48)
[2020-09-23] MEDS ORDERED: BROVANA15 MCG/2 M INH (08:48)
[2020-09-23] MEDS ORDERED: FLUCONAZOLE 10100 MG PO (08:48)
[2020-09-23] MEDS ORDERED: FOLIC ACID1 MG PO (08:48)
[2020-09-23] MEDS ORDERED: IPRAT-ALBUT 0.5-3 ML INH (08:48)
[2020-09-23] MEDS ORDERED: LASIX 40 MG TAB40 M1 PO (08:48)
[2020-09-23] MEDS ORDERED: SPIRONOLACTONE25 MG PO (08:48)
[2020-09-23] MEDS ORDERED: PULMICORT0.5 MG/2 M INH (08:48)
[2020-09-23] MEDS ORDERED: PREDNISONE 10 M10 M1 PO (08:48)
[2020-09-23] MEDS ORDERED: CARVEDILOL12.5 MG PO (08:48)
[2020-09-23] MEDS ORDERED: LEVOFLOXACIN500 MG PO (08:51)
[2020-09-23 12:00] VITALS: BP 124/64
[2020-09-23 16:00] VITALS: BP 141/89
[2020-09-23 20:30] VITALS: BP 151/82
[2020-09-24 00:39] VITALS: BP 139/81
[2020-09-24 04:02] VITALS: BP 148/85
[2020-09-24 04:54] LABS: ALBUMIN 2.6 g/dL (3.4-5.0); CALCIUM 8.3 mg/dL (8.5-10.1); CREATININE 0.7 mg/dL (0.6-1.3); MAGNESIUM 1.8 mg/dL (1.8-2.4); POTASSIUM 3.7 mmol/L (3.5-5.1); TOTAL BILIRUBIN 0.9 mg/dL (<0.1-1.0); TOTAL PROTEIN 5.9 g/dL (6.4-8.2)
[2020-09-24 05:07] LABS: ABSOLUTE EOSINOPHILS 0.1 thou/uL (0.0-0.7); ABSOLUTE LYMPHOCYTES 2.7 thou/uL (0.8-5.3); ABSOLUTE MONOCYTES 0.7 thou/uL (0.0-1.2); ABSOLUTE NEUTROPHILS 6.2 thou/uL (1.6-8.1); BASOPHILS 0.2 %; EOSINOPHILS 0.8 %; HEMATOCRIT 37.8 % (42.0-52.0); HEMOGLOBIN 11.9 gm/dL (14.0-18.0); LYMPHOCYTES 27.7 %; MCHC 31.6 g/dL (28.0-37.0); MCV 79.1 fL (80.0-100.0); MONOCYTES 6.9 %; NUCLEATED RBCS 0 /100WBC; PLATELET COUNT* 145 thou/uL (150-400); POLYS 64.4 %; RBC 4.78 mil/uL (4.50-6.00); RDW-CV 19.7 % (10.5-14.5); WBC 9.7 thou/uL (4.0-11.0)
[2020-09-24 08:00] VITALS: BP 150/88
[2020-09-24 12:00] VITALS: BP 138/80
[2020-09-24 20:00] VITALS: BP 140/90
[2020-09-25] VITALS: BP 121/85
[2020-09-25 08:00] VITALS: BP 138/98
[2020-09-25 12:29] VITALS: BP 139/89
[2020-09-25 17:40] VITALS: BP 135/86
[2020-09-25 20:30] VITALS: BP 131/75
[2020-09-26 05:22] LABS: ABSOLUTE EOSINOPHILS 0.1 thou/uL (0.0-0.7); ABSOLUTE MONOCYTES 0.7 thou/uL (0.0-1.2); ABSOLUTE NEUTROPHILS 6.2 thou/uL (1.6-8.1); BASOPHILS 0.4 %; EOSINOPHILS 0.9 %; HEMATOCRIT 39.2 % (42.0-52.0); HEMOGLOBIN 12.4 gm/dL (14.0-18.0); LYMPHOCYTES 29.9 %; MCH 25.1 pg (26.0-34.0); MCHC 31.7 g/dL (28.0-37.0); MCV 79.1 fL (80.0-100.0); MONOCYTES 6.8 %; MPV 8.5 fl. (7.2-11.1); NUCLEATED RBCS 0 /100WBC; PLATELET COUNT* 145 thou/uL (150-400); RBC 4.95 mil/uL (4.50-6.00); RDW-CV 19.6 % (10.5-14.5)
[2020-09-26 05:39] LABS: ALBUMIN 2.7 g/dL (3.4-5.0); CALCIUM 8.6 mg/dL (8.5-10.1); CREATININE 0.6 mg/dL (0.6-1.3); MAGNESIUM 1.8 mg/dL (1.8-2.4); TOTAL PROTEIN 6.2 g/dL (6.4-8.2)
[2020-09-26 08:45] VITALS: BP 126/75
[2020-09-26] MEDS ORDERED: DIFLUCAN100 MG PO ×2 (18:06→18:27)
[2020-09-26] MEDS ORDERED: IPRAT-ALBUT 0.5-3 ML INH ×2 (18:07→18:29)
[2020-09-26] MEDS ORDERED: BROVANA15 MCG/2 M INH ×2 (18:09→18:30)
[2020-09-26] MEDS ORDERED: CARVEDILOL12.5 MG PO ×2 (18:11→18:32)
[2020-09-26] MEDS ORDERED: COZAAR 25 MG TA25 M1 PO (18:13)
[2020-09-26] MEDS ORDERED: FUROSEMIDE 40 M40 MG PO ×2 (18:14→18:35)
[2020-09-26] MEDS ORDERED: SPIRONOLACTONE50 MG PO ×2 (18:15→18:34)
[2020-09-26] MEDS ORDERED: NORCO 10-325 T1 EACH PO (18:17)
[2020-09-26] MEDS ORDERED: PULMICORT0.5 MG/2 M INH ×2 (18:19→18:37)
[2020-09-26] MEDS ORDERED: HUMALOG100 UNIT/1 SUBQ ×2 (18:21→18:38)
[2020-09-26] MEDS ORDERED: FOLIC ACID1 MG PO ×2 (18:22→18:38)
[2020-09-26] MEDS ORDERED: PREDNISONE 10 M10 MG PO ×2 (18:25→18:40)
[2020-09-26] MEDS ORDERED: COZAAR 25 MG TA25 M2 PO (18:32)
[2020-09-26] MEDS ORDERED: NORCO5 PO (18:35)
[2020-09-26] MEDS ORDERED: LEVOFLOXACIN500 MG PO (18:42)
== END 2020-09-26 18:18 | DRG 870 ==
LOC: M.ERS 17:31 → M.TBA-ER 18:45 → M.ICU 20:11 → M.2W 09-17 13:13 → M.ORTHSURG 09-25 17:50
PROVIDERS: Family Medicine; Internal Medicine; Internal Medicine Critical Care Medicine; Nurse Practitioner Adult Health; Registered Nurse; ADMIT Internal Medicine; ATTEND Internal Medicine
PROC: 0BH17EZ Insertion of Endotracheal Airway into Trachea, Via Natural or Artificial Opening (ICD-10-PCS; principal; 2020-09-10)
PROC: 5A09357 Assistance with Respiratory Ventilation, Less than 24 Consecutive Hours, Continuous Positive Airway Pressure (ICD-10-PCS; principal; 2020-09-10)
PROC: 5A1955Z Respiratory Ventilation, Greater than 96 Consecutive Hours (ICD-10-PCS; principal; 2020-09-10)
PROC: 05HY33Z Insertion of Infusion Device into Upper Vein, Percutaneous Approach (ICD-10-PCS; 2020-09-11)
PROC: 5A09357 Assistance with Respiratory Ventilation, Less than 24 Consecutive Hours, Continuous Positive Airway Pressure (ICD-10-PCS; 2020-09-16)
PROC: 5A0935A Assistance with Respiratory Ventilation, Less than 24 Consecutive Hours, High Flow/Velocity Cannula (ICD-10-PCS; 2020-09-16)
PROC: 5A0935A Assistance with Respiratory Ventilation, Less than 24 Consecutive Hours, High Flow/Velocity Cannula (ICD-10-PCS; 2020-09-17)
PROC: 5A09357 Assistance with Respiratory Ventilation, Less than 24 Consecutive Hours, Continuous Positive Airway Pressure (ICD-10-PCS; 2020-09-18)
PROC: 5A0935A Assistance with Respiratory Ventilation, Less than 24 Consecutive Hours, High Flow/Velocity Cannula (ICD-10-PCS; 2020-09-18)
PROC: 5A09357 Assistance with Respiratory Ventilation, Less than 24 Consecutive Hours, Continuous Positive Airway Pressure (ICD-10-PCS; 2020-09-19)
PROC: 5A09357 Assistance with Respiratory Ventilation, Less than 24 Consecutive Hours, Continuous Positive Airway Pressure (ICD-10-PCS; 2020-09-20)
PROC: 5A0935A Assistance with Respiratory Ventilation, Less than 24 Consecutive Hours, High Flow/Velocity Cannula (ICD-10-PCS; 2020-09-20)
PROC: 5A09357 Assistance with Respiratory Ventilation, Less than 24 Consecutive Hours, Continuous Positive Airway Pressure (ICD-10-PCS; 2020-09-21)
PROC: 5A0935A Assistance with Respiratory Ventilation, Less than 24 Consecutive Hours, High Flow/Velocity Cannula (ICD-10-PCS; 2020-09-21)
PROC: 5A09357 Assistance with Respiratory Ventilation, Less than 24 Consecutive Hours, Continuous Positive Airway Pressure (ICD-10-PCS; 2020-09-23)
PROC: 5A09357 Assistance with Respiratory Ventilation, Less than 24 Consecutive Hours, Continuous Positive Airway Pressure (ICD-10-PCS; 2020-09-25)
PROC: 5A09357 Assistance with Respiratory Ventilation, Less than 24 Consecutive Hours, Continuous Positive Airway Pressure (ICD-10-PCS; 2020-09-26)
DX: A41.50 Gram-negative sepsis, unspecified (principal); G93.41 Metabolic encephalopathy; J96.21 Acute and chronic respiratory failure with hypoxia; J96.22 Acute and chronic respiratory failure with hypercapnia; N17.0 Acute kidney failure with tubular necrosis; I50.43 Acute on chronic combined systolic (congestive) and diastolic (congestive) heart failure; J18.9 Pneumonia, unspecified organism; N17.9 Acute kidney failure, unspecified; J44.1 Chronic obstructive pulmonary disease with (acute) exacerbation; E87.1 Hypo-osmolality and hyponatremia; I42.9 Cardiomyopathy, unspecified; N39.0 Urinary tract infection, site not specified; J44.0 Chronic obstructive pulmonary disease with (acute) lower respiratory infection; Z68.43 Body mass index [BMI] 50.0-59.9, adult; E87.5 Hyperkalemia; E66.01 Morbid (severe) obesity due to excess calories; D72.829 Elevated white blood cell count, unspecified; B96.89 Other specified bacterial agents as the cause of diseases classified elsewhere; G47.33 Obstructive sleep apnea (adult) (pediatric); D69.6 Thrombocytopenia, unspecified; I27.20 Pulmonary hypertension, unspecified; F15.10 Other stimulant abuse, uncomplicated; K43.9 Ventral hernia without obstruction or gangrene; E78.5 Hyperlipidemia, unspecified; R53.81 Other malaise; F19.10 Other psychoactive substance abuse, uncomplicated; Z20.822 Contact with and (suspected) exposure to COVID-19; Z86.718 Personal history of other venous thrombosis and embolism; Z79.899 Other long term (current) drug therapy

== ENCOUNTER 2020-09-26 17:03 | Inpatient (IN) | payer MEDICAID ==
[~2020-09-26] VITALS: Ht 177.8 cm; Wt 194.1 kg
[~2020-09-26 17:03] MED LIST changes: +BROVANA15 MCG/2 M INH; +CARVEDILOL12.5 MG PO; +COZAAR 50 MG TA50 M1 PO; +FLUCONAZOLE 10100 MG PO; +FOLIC ACID1 MG PO; +HUMALOG100 UNIT/1 SUBQ; +HYDROCODON-ACE1 EAC7 PO; +IPRAT-ALBUT 0.5-3 ML INH; +LASIX 40 MG TAB40 M1 PO; +LEVOFLOXACIN500 MG PO; +PREDNISONE 10 M10 M1 PO; +PULMICORT0.5 MG/2 M INH; +SPIRONOLACTONE25 MG PO
[2020-09-26] MEDS ORDERED: DIFLUCAN100 MG PO ×2 (18:06→18:27)
[2020-09-26] MEDS ORDERED: IPRAT-ALBUT 0.5-3 ML INH ×2 (18:07→18:29)
[2020-09-26] MEDS ORDERED: BROVANA15 MCG/2 M INH ×2 (18:09→18:30)
[2020-09-26] MEDS ORDERED: CARVEDILOL12.5 MG PO ×2 (18:11→18:32)
[2020-09-26] MEDS ORDERED: COZAAR 25 MG TA25 M1 PO (18:13)
[2020-09-26] MEDS ORDERED: FUROSEMIDE 40 M40 MG PO ×2 (18:14→18:35)
[2020-09-26] MEDS ORDERED: SPIRONOLACTONE50 MG PO ×2 (18:15→18:34)
[2020-09-26] MEDS ORDERED: NORCO 10-325 T1 EACH PO (18:17)
[2020-09-26] MEDS ORDERED: PULMICORT0.5 MG/2 M INH ×2 (18:19→18:37)
[2020-09-26] MEDS ORDERED: HUMALOG100 UNIT/1 SUBQ ×2 (18:21→18:38)
[2020-09-26] MEDS ORDERED: FOLIC ACID1 MG PO ×2 (18:22→18:38)
[2020-09-26] MEDS ORDERED: PREDNISONE 10 M10 MG PO ×2 (18:25→18:40)
[2020-09-26] MEDS ORDERED: COZAAR 25 MG TA25 M2 PO (18:32)
[2020-09-26] MEDS ORDERED: NORCO5 PO (18:35)
[2020-09-26] MEDS ORDERED: LEVOFLOXACIN500 MG PO (18:42)
[2020-09-26 20:23] VITALS: BP 124/80
--- NOTE | 2020-09-26 22:00 | NUR ---
RESTING IN SPECIALTY BED. IRRITABLE AND FUSSY AND ANXIOUS. GRIGGS TO DEPENDENT DRAINAGE WITH YELLOW URINE. CALL LIGHT WITHIN REACH. SNACK PROVIDED.
[2020-09-27 04:51] LABS: HEMATOCRIT 40.3 % (42.0-52.0); HEMOGLOBIN 12.7 gm/dL (14.0-18.0); MCH 25.2 pg (26.0-34.0); MCHC 31.6 g/dL (28.0-37.0); MCV 79.6 fL (80.0-100.0); MPV 8.5 fl. (7.2-11.1); RBC 5.06 mil/uL (4.50-6.00); RDW-CV 19.8 % (10.5-14.5); WBC 9.4 thou/uL (4.0-11.0)
[2020-09-27 04:57] LABS: CALCIUM 9.2 mg/dL (8.5-10.1); CREATININE 0.8 mg/dL (0.6-1.3)
--- NOTE | 2020-09-27 05:42 | NUR ---
RESTED QUIETLY WITH BIPAP AND 2 LITERS 02. TURNS SELF IN BED. ON BARIATRIC BED. TECH FROM [facility] CAME DURING THE NIGHT AND FOUND A HOSE IN THE BED THAT WAS KINKED AND FIXED IT. BED ALARM STOPPED GOING OFF AFTER THE HOSE WAS FIXED. HOURLY ROUNDING IN PROGRESS.
[2020-09-27 08:33] VITALS: BP 136/83
--- NOTE | 2020-09-27 09:28 | NUR ---
Nutrition: Pt admitted to rehab with weakness after being intubated in ICU with respiratory failure. He was extubated previously and was able to eat. He has marked weakness now. H/o HTN, COPD, OBE, tobacco, CHF. Wt: 428# (fluctuating in [employer], bariatric). +BM yesterday. Heart Healthy diet. Meds: insulin, folic acid, carvedilol. Steroids tapered. Labs: BG 101-137, alb 2.7, prealb 24.6. Consider mild nutrition risk at this time. GOALS: >75% of meal intake, gradual wt loss over time, heart healthy diet. Will follow weekly.
--- NOTE | 2020-09-27 14:19 | NUR ---
WOUND NURSE: DISCUSSED WITH PATIENT'S NURSE, MOON, REGARDING DECREASING FREQUENCY OF BLE DRESSING CHANGES BASED ON PATIENT'S PROGRESS TOWARD HEALING TO 2X/WEEK. PATIENT IS CURRENTLY OFF THE UNIT WITH THERAPIST AND UNABLE TO BE SEEN AT THIS TIME BY ME. I RECOMMEND DECREAST TO DRESSING CHANGE TODAY, THEN 2X/WEEK ON SUNDAYS AND THURSDAYS.
--- NOTE | 2020-09-27 16:41 | NUR ---
PATIENT COMPLETED THERAPIES TODAY ORDERED. UP WITH ASSISTANCE; GAIT BELT AND WALKER WITH 02. DRESSINGS TO ODALYS LE'S CHANGED AND PHOTOS TAKEN PER PROTOCOL. DR. SOTO NOTIFIED THAT PATIENT REMAINED ON LOVENOX BID AND STILL HAD GRIGGS IN PLACE WHILE ROUNDING; AWAITING NEW ORDERS. MIDLINE WAS DC'D. NO BM NOTED THIS SHIFT. NO INSULIN REQUIRED WITH MEALS THIS SHIFT.
[2020-09-27 19:58] VITALS: BP 130/84
--- NOTE | 2020-09-28 01:50 | NUR ---
ASSUMED CARE AT 1915. PATIENT RESTING IN BARIATRIC BED. TAKES PILLS WHOLE WITH WATER. O2 2L/NC. RESP THERAPY APPLIED BIPAP AT HS WITH 2L O2 BLED IN. GRIGGS DRAINS SEVERINO URINE. BILAT CALF DRESSINGS C/D/I. NO C/O PAIN. RESP THERAPY CALLED TO ADJUST BIPAP IT IS ALARMING. HOURLY ROUNDS CONTINUE. BED ALARM ON. CALL LITE IN REACH.
--- NOTE | 2020-09-28 05:28 | NUR ---
SLEPT MOST OF THE NIGHT. BIPAP MASK ADJUSTED BY R.T, AND HAS TOLERATED IT WELL. REPOSITIONS SELF IN BED. NO C/O PAIN. BARIATRIC BED CONTINUES. HOURLY ROUNDS CONTINUE. BED ALARM ON. CALL LITE IN REACH.
[2020-09-28 08:00] VITALS: BP 132/84
--- NOTE | 2020-09-28 17:54 | NUR ---
PT WAS VERY GRUMPY THIS AM, AFTER THERAPY HE WAS A LOT BETTER. VSS AFEBRILE. PT HAS NOT NEEDED ANY EXTRA INSULIN PER SLIDING SCALE TODAY. ANSON DISCONTINUED THIS AFTERNOON PER PT REQUEST. WILL CONTINUE TO MONITOR PLAN OF CARE.
[2020-09-28 20:24] VITALS: BP 117/79
--- NOTE | 2020-09-29 04:57 | NUR ---
ASSUMED PT CARE AT 1930. PT ALERT AND ORIENTED X4, COOPERATIVE WITH CARES. PT RESTING IN BARIATRIC BED. TAKES PILLS WHOLE IN WATER. ON 2L 02 PER NC. BIPAP AT HS WITH 2L 02 BLED IN PLACED BY R.T. VOIDS PER URINAL. BILATERAL CALF DRESSINGS C/D/I. NO C/O PAIN. REPOSITIONS SELF IN BED. CALL LIGHT IN REACH, BED ALARM ON FOR SAFETY. HOURLY ROUNDING IN PROGRESS, WILL CONTINUE TO MONITOR.
[2020-09-29 08:00] VITALS: BP 109/68
--- NOTE | 2020-09-29 18:16 | NUR ---
PT VOIDING PER URINAL WITH GOOD OUT PUT. PT IS REALLY BELEIVING HE IS GOING HOME TOMORROW. PT STATED HE WANTS TO REST THIS DAY SO HE WILL BE WELL RESTED TO GO HOME TOMORROW. VSS AFEBRILE. WILL CONTINUE TO MONITOR PLAN OF CARE.N
[2020-09-29 20:31] VITALS: BP 134/66
--- NOTE | 2020-09-30 04:53 | NUR ---
ASSUMED PT CARE AT 1930. PT ALERT AND ORIENTED X4, COOPERATIVE [facility] CARES. PT RESTING IN BARIATRIC BED. TAKES PILLS WHOLE IN WATER. ON ROOM AIR. BIPAP AT HS PLACED BY RT. VOIDS PER URINAL. ONE EXTREMELY LARGE STOOL THIS SHIFT PER BSC. PT UNCOOPERATIVE WITH TRANSFERS, REFUSING GAITBELT AND WALKER. BILATERAL CALF DRESSINGS CHANGED AND PHOTOS TAKEN. PT TOLERATED WELL. NO C/O PAIN. REPOSITIONS SELF IN BED. PT INSISTS HE IS GOING HOME TODAY. CALL LIGHT IN REACH, BED ALARM ON FOR SAFETY. HOURLY ROUNDING IN PROGRESS, WILL CONTINUE TO MONITOR.
[2020-09-30 07:50] VITALS: BP 118/72
--- NOTE | 2020-09-30 16:59 | NUR ---
PATIENT COMPLETED THERAPIES THIS SHIFT ORDERED. DR. YOUNG HERE THIS AM AND MADE PATIENT MOD-I, ORDERS TO PT AND OT PLACED. PATIENT VOIDING PER URINAL, VERY LARGE BM NOTED TO BSC. PATIENT HAD A SHOWER TODAY. PATIENT C/O NOT FEELING WELL THIS AM, PRN MYLANTA GIVEN. PATIENT LATER COMPLAINED OF NAUSEA AND A HEADACHE, SPRITE WAS GIVEN. PRN ZOFRAN WAS ORDERED PER DR. SYKES BUT PATIENT STATED HE FELT MUCH BETTER AND ALSO REFUSED TYLENOL. PATIENT REMAINS ON RA. DISCHARGE PLANNING FOR TOMORROW IF PATIENT DOES WELL WITH MOD-I.
[2020-09-30 19:00] VITALS: BP 110/77
--- NOTE | 2020-10-01 05:22 | NUR ---
ASSUMED CARES AT 1920. ALERT AND ORIENTED. BIPAP AT NIGHT. ANDRA IN RM. USED URINAL. DRSG TO LEGS INTACT. BARIATRIC BED. SLEPT MOST OF THE NIGHT. CALL LIGHT IN REACH AND BED ALARM ON.
[2020-10-01 07:40] VITALS: BP 131/82
[2020-10-01] MEDS ORDERED: CARVEDILOL12.5 MG PO (09:13)
[2020-10-01] MEDS ORDERED: LASIX 40 MG TAB40 M1 PO (09:13)
[2020-10-01] MEDS ORDERED: SPIRONOLACTONE25 MG PO (09:13)
[2020-10-01] MEDS ORDERED: PULMICORT0.5 MG/2 M INH (09:13)
[2020-10-01] MEDS ORDERED: BROVANA15 MCG/2 M INH (09:13)
[2020-10-01] MEDS ORDERED: COZAAR 50 MG TA50 M1 PO (09:13)
[2020-10-01] MEDS ORDERED: IPRAT-ALBUT 0.5-3 ML INH (09:13)
[2020-10-01] MEDS ORDERED: FOLIC ACID1 MG PO (09:13)
[2020-10-01 09:28] VITALS: BP 131/82
--- NOTE | 2020-10-01 09:56 | NUR ---
WOUND NURSE: PATIENT SEEN FOR FOLLOW UP ASSESSMENT PERTAINING TO VLU'S ON BLE. ALL ARE IMPROVING WITH SMALLER MEASUREMENTS AND LESS EDEMA. RLE WOUNDS ARE NEARLY HEALED, LLE WOUND IS HEALING. PATIENT SCHEDULED TO FOLLOW UP IN [facility] ON WEDNESDAY AT 9:00 AM. PATIENT STATES HE'S PLANNING ON HIS NEICE BRINGING HIM.
--- NOTE | 2020-10-01 10:10 | NUR ---
PATIENT DISCHARGED TO HOME AT THIS TIME. DRESSINGS TO ODALYS LE'S CHANGED BY TIM FROM WOUND CARE AND PHOTOS OBTAINED. PATIENT VERBALIZES UNDERSTANDING OF PAPERWORK AND SCRIPTS SENT TO PREFFERED PHARMACY. PATIENT REFUSING TO WAIT FOR WALKER STATED HE HAS ONE AT HOME. CM WORKING ON NEBULIZER FOR PATIENT, PATIENT IS AWARE. PATIENT TAKEN OUT VIA WHEELCHAIR WITH ALL BELONGINGS.
[2020-10-01 10:25] VITALS: BP 131/82
--- NOTE | 2020-10-01 16:55 | NUR ---
RN INFORMS CM OF PT'S PLAN TO D/C TODAY. INITIALLY INFORMED THAT PT WOULD BEED A WALKER. CM SPOKE TO MEDICAID TO OBTAIN PRIOR AUTH. AUTH RECIVED, HOWEVER PT INFORMS THAT HE DOESN'T NEED THE WALKER BECAUSE HE HAS ONE AT HOME. CM INFORMED OF NEED FOR HOME NEBULIZER FOR PT. CM OBTAINED INSURANCE AUTH FOR NEBULIZER WITH MEDICAID. [facility] TO DELIVER HOME NEBULIZER TO PT'S HOME. CM WILL REMAIN AVAILABLE TO ASSIST AND FOLLOW NEEDED.
== END 2020-10-01 10:00 | disposition home or self-care (01) | DRG 70 ==
LOC: M.REH 17:03
PROVIDERS: ADMIT Physical Medicine & Rehabilitation; ATTEND Physical Medicine & Rehabilitation
PROC: 5A09357 Assistance with Respiratory Ventilation, Less than 24 Consecutive Hours, Continuous Positive Airway Pressure (ICD-10-PCS; principal; 2020-09-26)
PROC: 5A09357 Assistance with Respiratory Ventilation, Less than 24 Consecutive Hours, Continuous Positive Airway Pressure (ICD-10-PCS; 2020-09-27)
PROC: 5A09457 Assistance with Respiratory Ventilation, 24-96 Consecutive Hours, Continuous Positive Airway Pressure (ICD-10-PCS; 2020-09-28)
DX: G93.41 Metabolic encephalopathy (principal); A41.9 Sepsis, unspecified organism; J96.90 Respiratory failure, unspecified, unspecified whether with hypoxia or hypercapnia; E87.1 Hypo-osmolality and hyponatremia; N39.0 Urinary tract infection, site not specified; N17.9 Acute kidney failure, unspecified; Z68.43 Body mass index [BMI] 50.0-59.9, adult; J44.9 Chronic obstructive pulmonary disease, unspecified; E66.01 Morbid (severe) obesity due to excess calories; E87.5 Hyperkalemia; D69.6 Thrombocytopenia, unspecified; R53.81 Other malaise

== ENCOUNTER → 2020-10-08 | Outpatient (CLI) | payer MEDICAID ==
[~2020-10-08] MED LIST changes: +COZAAR 25 MG TA25 M1 PO; +COZAAR 25 MG TA25 M2 PO; +DIFLUCAN100 MG PO; +FUROSEMIDE 40 M40 MG PO; +NORCO 10-325 T1 EACH PO; +NORCO5 PO; +PREDNISONE 10 M10 MG PO; +SPIRONOLACTONE50 MG PO
== END ==
LOC: M.WC 09:00
PROVIDERS: ATTEND Emergency Medicine Undersea and Hyperbaric Medicine
DX: L97.812 Non-pressure chronic ulcer of other part of right lower leg with fat layer exposed (principal); L97.822 Non-pressure chronic ulcer of other part of left lower leg with fat layer exposed; I89.0 Lymphedema, not elsewhere classified; E66.01 Morbid (severe) obesity due to excess calories; G47.30 Sleep apnea, unspecified; I11.0 Hypertensive heart disease with heart failure; I50.9 Heart failure, unspecified; J44.9 Chronic obstructive pulmonary disease, unspecified; F17.200 Nicotine dependence, unspecified, uncomplicated; Z68.43 Body mass index [BMI] 50.0-59.9, adult

== ENCOUNTER → 2020-10-15 | Outpatient (CLI) | payer MEDICAID | LOC: M.WC 08:41 | PROVIDERS: ATTEND Emergency Medicine Undersea and Hyperbaric Medicine | DX: L97.812 Non-pressure chronic ulcer of other part of right lower leg with fat layer exposed (principal); L97.822 Non-pressure chronic ulcer of other part of left lower leg with fat layer exposed; I89.0 Lymphedema, not elsewhere classified; E66.01 Morbid (severe) obesity due to excess calories; G47.30 Sleep apnea, unspecified; I11.0 Hypertensive heart disease with heart failure; I50.9 Heart failure, unspecified; J44.9 Chronic obstructive pulmonary disease, unspecified; F17.200 Nicotine dependence, unspecified, uncomplicated; Z68.43 Body mass index [BMI] 50.0-59.9, adult ==

== ENCOUNTER 2020-11-03 14:27 | Inpatient (IN) | payer MEDICAID ==
[~2020-11-03] VITALS: Ht 167.6 cm; Wt 161.5 kg
[2020-11-03 14:35] VITALS: BP 135/80
[2020-11-03 15:10] LABS: ABSOLUTE BASOPHILS 0.1 thou/uL (0.0-0.2); ABSOLUTE EOSINOPHILS 0.1 thou/uL (0.0-0.7); ABSOLUTE LYMPHOCYTES 1.8 thou/uL (0.8-5.3); ABSOLUTE MONOCYTES 0.7 thou/uL (0.0-1.2); ABSOLUTE NEUTROPHILS 8.5 thou/uL (1.6-8.1); EOSINOPHILS 0.9 %; HEMATOCRIT 32.9 % (42.0-52.0); HEMOGLOBIN 10.9 gm/dL (14.0-18.0); LYMPHOCYTES 16.4 %; MCH 27.3 pg (26.0-34.0); MCHC 33.1 g/dL (28.0-37.0); MCV 82.4 fL (80.0-100.0); MONOCYTES 6.1 %; MPV 7.2 fl. (7.2-11.1); NUCLEATED RBCS 0 /100WBC; PLATELET COUNT* 218 thou/uL (150-400); POLYS 75.6 %; RBC 3.99 mil/uL (4.50-6.00); RDW-CV 22.2 % (10.5-14.5); WBC 11.3 thou/uL (4.0-11.0)
[2020-11-03 15:22] LABS: CALCIUM 8.2 mg/dL (8.5-10.1); CREATININE 0.8 mg/dL (0.6-1.3)
[2020-11-03 15:33] LABS: ALBUMIN 2.4 g/dL (3.4-5.0); TOTAL BILIRUBIN 0.6 mg/dL (<0.1-1.0); TOTAL PROTEIN 6.8 g/dL (6.4-8.2)
[2020-11-03 15:45] LABS: ANISOCYTOSIS 2+
[2020-11-03 15:47] LABS: PLATELET ESTIMATE ADEQUATE; POLYCHROMASIA 1+
[2020-11-03 19:44] LABS: BE 8.7 mmol/L (-2 to +3); PO2 89.3 mmHg (75.0-100.0)
[2020-11-03 19:45] LABS: pH 7.278 (7.340-7.450)
[2020-11-03 20:33] VITALS: BP 167/100
[2020-11-03 20:40] VITALS: BP 134/96
[2020-11-03 22:09] LABS: BE 10.1 mmol/L (-2 to +3); PO2 84.8 mmHg (75.0-100.0)
[2020-11-03 22:10] LABS: pH 7.287 (7.340-7.450)
[2020-11-03 22:11] LABS: PCO2 84.8 mmHg (35.0-45.0)
[2020-11-04] VITALS: BP 142/82
[2020-11-04 10:13] VITALS: BP 138/99
[2020-11-04 10:44] LABS: BE 4.8 mmol/L (-2 to +3); PO2 84.7 mmHg (75.0-100.0)
[2020-11-04 10:51] LABS: PCO2 76.1 mmHg (35.0-45.0); pH 7.267 (7.340-7.450)
--- NOTE | 2020-11-04 11:45 | EKG ---
[place] [address] ELECTROCARDIOGRAM REPORT Name: ROLF SAMS Room: [address] ADM IN .R.#: [id number] Admission: 11/03/20 Attend Phys: Daxa Boston Discharge: Date of : 67 Date of Service: 11/03/20 1450 Report #: [id number] THIS REPORT FOR: //name// [facility] ED Test Date: 2020-11-03 Test Time: 14:50:54 Pat Name: ROLF SAMS Department: Room: [facility] Gender: M Panel Assembler: MEAGAN : 1965 Requested By: Gary Rendon Order Number: [id number] MD: Diaz Alcaraz Measurements Intervals [place] Rate: 118 P: 56 [place]: 160 QRS: -12 QRSD: 153 T: -56 QT: 358 QTc: 502 Interpretive Statements Sinus tachycardia Right bundle branch block Baseline wander in lead(s) V1,V2,V3 Compared to ECG 09/17/2020 16:38:35 Sinus rhythm no longer present T-wave abnormality no longer present Possible ischemia no longer present Electronically Signed On 11-04-2020 11:45:44 CDT by Diaz Alcaraz [email or web address] <ELECTRONICALLY SIGNED> By: Diaz Alcaraz MD, [facility] 11/04/20 1145 1450 1450 Diaz Alcaraz MD, [facility] /EPI
[2020-11-04 15:12] VITALS: BP 138/90
[2020-11-04 19:20] VITALS: BP 147/93
[2020-11-04 20:00] VITALS: BP 153/99
[2020-11-05] VITALS: BP 112/52; BP 129/82
[2020-11-05 04:00] VITALS: BP 124/78
[2020-11-05 04:37] LABS: ANION GAP < 0 mmol/L (7-16); BUN 7 mg/dL (7-18); CALCIUM 8.4 mg/dL (8.5-10.1); CHLORIDE 102 mmol/L (98-107); CO2 42 mmol/L (21-32); CREATININE 0.7 mg/dL (0.6-1.3); GLUCOSE 86 mg/dL (70-99); POTASSIUM 4.4 mmol/L (3.5-5.1); SODIUM 141 mmol/L (136-145)
[2020-11-05 08:00] VITALS: BP 125/81
--- NOTE | 2020-11-05 08:22 | CON ---
[address] [address] CONSULTATION Name: ROLF SAMS Room: [address] IN .R.#: [id number] Admission: 11/03/20 Attend Phys: Rohini Fulton Discharge: Date of : 67 Report #: [id number] THIS REPORT FOR: cc: FAM - No family physician/PCP FAM - No family physician/PCP Juan Craig MD [facility] ~ DOC #: [id number] Juan Craig MD DATE OF CONSULTATION: 11/04/2020 CARDIOLOGY CONSULT INDICATION: Heart failure. HISTORY OF PRESENT ILLNESS: The patient is a 54-year-old gentleman with morbid obesity and known combined heart failure. EF on echocardiogram was 35% with global hypokinesis consistent with a nonischemic cardiomyopathy. The patient also has COPD, obstructive sleep apnea, severe morbid obesity, tobacco use and hypertension. The patient presented to the hospital with complaints of feeling confused and lethargic. In this setting, he does complain of shortness of breath. After recent discharge from hospital, he was supposed to be on a nebulizer and BiPAP, but states he never received the equipment. He denies chest pain. He is without other specific cardiac complaint. He does have orthopnea and PND. Cardiac enzymes are unremarkable. EKG shows sinus tachycardia with right bundle branch block. No pathologic Q-waves noted. PAST MEDICAL HISTORY: 1. Chronic combined heart failure. 2. Nonischemic cardiomyopathy. 3. COPD. 4. Obstructive sleep apnea. 5. Severe morbid obesity. 6. Hypertension. 7. Chronic tobacco use. HOME MEDICATIONS: Folate 1 mg p.o. daily, Pulmicort inhaler b.i.d., furosemide 40 mg p.o. daily, spironolactone 50 mg p.o. daily, losartan 50 mg p.o. daily, carvedilol 12.5 mg p.o. b.i.d., Brovana inhaler b.i.d., Combivent inhaler q.i.d. ALLERGIES: None documented. SOCIAL HISTORY: The patient is apparently a tobacco smoker. Denies use of alcohol. REVIEW OF SYSTEMS: Fourteen-point review of [place] [address] CONSULTATION Name: ROLF SAMS Room: [address]#: [id number] Admission: 11/03/20 Attend Phys: Rohini Fulton Discharge: Date of : 67 Report #: [id number] PHYSICAL EXAMINATION: VITAL SIGNS: Blood pressure 138/99, pulse 103 and regular. GENERAL: This is a morbidly obese gentleman who is in no distress. HEENT: Head is normocephalic, atraumatic. Extraocular muscles intact. Mucous membranes are moist. NECK: Shows a thick neck without obvious JVD. CHEST: Reveals severely diminished breath sounds with slight expiratory wheezes. CARDIAC: Reveals a tachycardic rhythm that is regular without gallop or murmur. ABDOMEN: Reveals a protuberant abdomen, is soft, bowel sounds present. EXTREMITIES: Show skin changes from chronic edema. IMPRESSION AND RECOMMENDATIONS: 1. Acute on chronic combined heart failure. Agree with IV Lasix for diuresis. Continue spironolactone at current home dose. Recent echocardiogram showed ejection fraction of 35%. No need to repeat this study at this time. Continue losartan and carvedilol at current doses and titrate as tolerated. 2. Obstructive sleep apnea. Recommend compliance with bilevel positive airway pressure. 3. Chronic obstructive pulmonary disease, chronic per hospitalist. 4. Hypertension. Blood pressure appears to be adequately controlled on current cardiac regimen. 5. Chronic tobacco use. Smoking cessation advised. Juan Craig MD MJL/ANIL <ELECTRONICALLY SIGNED> By: Juan Craig MD, FACC 11/05/20 0822 1322 1453[facility] Centerwinnie Craig MD, FAC /nt
[2020-11-05 14:35] VITALS: BP 113/62
[2020-11-05 16:00] VITALS: BP 142/85
[2020-11-05 20:00] VITALS: BP 146/86
[2020-11-06] VITALS (7 sets, daily range): BP systolic 131–164; BP diastolic 74–111
[2020-11-06 04:57] LABS: HEMATOCRIT 34.9 % (42.0-52.0); HEMOGLOBIN 11.5 gm/dL (14.0-18.0); MCH 27.5 pg (26.0-34.0); MCHC 33.1 g/dL (28.0-37.0); MPV 7.4 fl. (7.2-11.1); RBC 4.2 mil/uL (4.50-6.00); RDW-CV 20.3 % (10.5-14.5); WBC 5.6 thou/uL (4.0-11.0)
[2020-11-06 05:08] LABS: ANION GAP < 0 mmol/L (7-16); BUN 10 mg/dL (7-18); CALCIUM 8.9 mg/dL (8.5-10.1); CHLORIDE 99 mmol/L (98-107); CO2 44 mmol/L (21-32); CREATININE 0.7 mg/dL (0.6-1.3); GLUCOSE 134 mg/dL (70-99); POTASSIUM 4.8 mmol/L (3.5-5.1); SODIUM 140 mmol/L (136-145)
[2020-11-06 17:42] LABS: BE 17.1 mmol/L (-2 to +3); pH 7.407 (7.340-7.450)
[2020-11-06 17:44] LABS: PCO2 73.6 mmHg (35.0-45.0)
[2020-11-06 18:10] LABS: AMP/METHAMP POSITIVE (Negative); BARBITURATES Negative (Negative); BENZODIAZEPINES Negative (Negative); COCAINE Negative (Negative); METHADONE Negative (Negative); OPIATES Negative (Negative); PCP Negative (Negative); THC Negative (Negative)
[2020-11-07 01:45] VITALS: BP 152/101
[2020-11-07 04:00] VITALS: BP 155/102
[2020-11-07 04:23] LABS: HEMATOCRIT 37.4 % (42.0-52.0); HEMOGLOBIN 12.3 gm/dL (14.0-18.0); MCH 27.4 pg (26.0-34.0); MCHC 32.9 g/dL (28.0-37.0); MCV 83.4 fL (80.0-100.0); MPV 7.4 fl. (7.2-11.1); NUCLEATED RBCS 0 /100WBC; PLATELET COUNT* 217 thou/uL (150-400); RBC 4.48 mil/uL (4.50-6.00); RDW-CV 21.1 % (10.5-14.5); WBC 9.1 thou/uL (4.0-11.0)
[2020-11-07 04:50] LABS: ALBUMIN 2.4 g/dL (3.4-5.0); ALKALINE PHOSPHATASE 73 U/L (46-116); ANION GAP < 0 mmol/L (7-16); BUN 17 mg/dL (7-18); CALCIUM 9.1 mg/dL (8.5-10.1); CHLORIDE 99 mmol/L (98-107); CO2 41 mmol/L (21-32); CREATININE 0.7 mg/dL (0.6-1.3); GLUCOSE 149 mg/dL (70-99); MAGNESIUM 2.1 mg/dL (1.8-2.4); POTASSIUM 3.5 mmol/L (3.5-5.1); SGOT 18 U/L (15-37); SGPT 15 U/L (30-65); SODIUM 139 mmol/L (136-145); TOTAL BILIRUBIN 0.6 mg/dL (<0.1-1.0); TOTAL PROTEIN 7.3 g/dL (6.4-8.2)
[2020-11-07 06:33] LABS: ABSOLUTE LYMPHOCYTES 0.8 thou/uL (0.8-5.3); ABSOLUTE MONOCYTES 0.2 thou/uL (0.0-1.2); ABSOLUTE NEUTROPHILS 8.1 thou/uL (1.6-8.1); ANISOCYTOSIS 1+; PLATELET ESTIMATE ADEQUATE; POIKILOCYTOSIS 1+
[2020-11-07 07:53] VITALS: BP 140/84
[2020-11-07 09:44] LABS: BE 10.3 mmol/L (-2 to +3); PO2 72.8 mmHg (75.0-100.0); pH 7.371 (7.340-7.450)
[2020-11-07 09:46] LABS: PCO2 67.6 mmHg (35.0-45.0)
[2020-11-07 12:00] VITALS: BP 155/99
[2020-11-07 16:00] VITALS: BP 161/104
[2020-11-07 19:45] VITALS: BP 135/74
[2020-11-08] VITALS: BP 154/95
[2020-11-08 03:40] VITALS: BP 152/103
[2020-11-08 05:27] LABS: ABSOLUTE LYMPHOCYTES 0.5 thou/uL (0.8-5.3); ABSOLUTE MONOCYTES 0.3 thou/uL (0.0-1.2); HEMATOCRIT 38.6 % (42.0-52.0); HEMOGLOBIN 12.9 gm/dL (14.0-18.0); LYMPHOCYTES 5.3 %; MCH 27.8 pg (26.0-34.0); MCHC 33.4 g/dL (28.0-37.0); MCV 83.2 fL (80.0-100.0); MONOCYTES 2.8 %; MPV 7.4 fl. (7.2-11.1); NUCLEATED RBCS 0 /100WBC; PLATELET COUNT* 219 thou/uL (150-400); POLYS 91.9 %; RBC 4.64 mil/uL (4.50-6.00); RDW-CV 21.5 % (10.5-14.5); WBC 9.8 thou/uL (4.0-11.0)
[2020-11-08 05:36] LABS: CALCIUM 9.1 mg/dL (8.5-10.1); CREATININE 0.7 mg/dL (0.6-1.3); MAGNESIUM 2.1 mg/dL (1.8-2.4); POTASSIUM 3.9 mmol/L (3.5-5.1)
[2020-11-08 09:08] VITALS: BP 149/98
[2020-11-08 12:00] VITALS: BP 140/98
[2020-11-08 16:00] VITALS: BP 120/84
[2020-11-08 19:45] VITALS: BP 148/88
[2020-11-09] VITALS: BP 146/87
[2020-11-09 04:26] VITALS: BP 112/85
[2020-11-09 06:20] LABS: ABSOLUTE LYMPHOCYTES 0.7 thou/uL (0.8-5.3); ABSOLUTE MONOCYTES 0.5 thou/uL (0.0-1.2); BASOPHILS 0.2 %; HEMATOCRIT 40.8 % (42.0-52.0); HEMOGLOBIN 13.4 gm/dL (14.0-18.0); LYMPHOCYTES 6.9 %; MCH 27.2 pg (26.0-34.0); MCHC 32.8 g/dL (28.0-37.0); MONOCYTES 5.1 %; MPV 7.6 fl. (7.2-11.1); NUCLEATED RBCS 0 /100WBC; PLATELET COUNT* 219 thou/uL (150-400); POLYS 87.8 %; RBC 4.92 mil/uL (4.50-6.00); WBC 10.3 thou/uL (4.0-11.0)
[2020-11-09 06:40] LABS: ALBUMIN 2.6 g/dL (3.4-5.0); CALCIUM 8.9 mg/dL (8.5-10.1); CREATININE 0.7 mg/dL (0.6-1.3); TOTAL BILIRUBIN 0.6 mg/dL (<0.1-1.0); TOTAL PROTEIN 7.2 g/dL (6.4-8.2)
[2020-11-09 08:00] VITALS: BP 110/68
[2020-11-09 11:25] VITALS: BP 117/67
[2020-11-09 16:00] VITALS: BP 121/84
[2020-11-09 20:00] VITALS: BP 104/70
[2020-11-10] VITALS: BP 112/68
[2020-11-10 04:00] VITALS: BP 119/70
[2020-11-10 05:09] LABS: ABSOLUTE LYMPHOCYTES 0.4 thou/uL (0.8-5.3); ABSOLUTE MONOCYTES 0.3 thou/uL (0.0-1.2); BASOPHILS 0.1 %; HEMATOCRIT 41.2 % (42.0-52.0); HEMOGLOBIN 13.5 gm/dL (14.0-18.0); LYMPHOCYTES 4.8 %; MCH 27.4 pg (26.0-34.0); MCHC 32.8 g/dL (28.0-37.0); MCV 83.6 fL (80.0-100.0); MONOCYTES 4.4 %; MPV 7.6 fl. (7.2-11.1); NUCLEATED RBCS 0 /100WBC; PLATELET COUNT* 194 thou/uL (150-400); POLYS 90.7 %; RBC 4.93 mil/uL (4.50-6.00); RDW-CV 21.8 % (10.5-14.5); WBC 7.7 thou/uL (4.0-11.0)
[2020-11-10 05:13] LABS: ANION GAP < 0 mmol/L (7-16); BUN 30 mg/dL (7-18); CALCIUM 8.6 mg/dL (8.5-10.1); CHLORIDE 103 mmol/L (98-107); CO2 40 mmol/L (21-32); CREATININE 0.7 mg/dL (0.6-1.3); GLUCOSE 111 mg/dL (70-99); POTASSIUM 4.4 mmol/L (3.5-5.1); SODIUM 142 mmol/L (136-145)
[2020-11-10 08:36] VITALS: BP 132/70
[2020-11-10 11:59] VITALS: BP 102/59
[2020-11-10 17:07] VITALS: BP 123/78
[2020-11-10 20:00] VITALS: BP 115/70
[2020-11-11] VITALS: BP 115/75
[2020-11-11 04:00] VITALS: BP 135/84
[2020-11-11 08:00] VITALS: BP 121/85
[2020-11-11 12:00] VITALS: BP 129/85
[2020-11-11] MEDS ORDERED: LASIX 40 MG TAB40 M1 PO (12:13)
[2020-11-11 16:00] VITALS: BP 123/73
[2020-11-11 20:00] VITALS: BP 114/74
[2020-11-12] VITALS: BP 108/72
[2020-11-12 04:15] LABS: BUN 33 mg/dL (7-18); CALCIUM 8.8 mg/dL (8.5-10.1); CHLORIDE 100 mmol/L (98-107); CREATININE 0.9 mg/dL (0.6-1.3); GLUCOSE 97 mg/dL (70-99); MAGNESIUM 2.3 mg/dL (1.8-2.4); POTASSIUM 4.5 mmol/L (3.5-5.1); SODIUM 141 mmol/L (136-145)
[2020-11-12 04:22] LABS: CO2 > 45 mmol/L (21-32)
[2020-11-12 04:49] LABS: ABSOLUTE MONOCYTES 0.9 thou/uL (0.0-1.2); ABSOLUTE NEUTROPHILS 7.7 thou/uL (1.6-8.1); EOSINOPHILS 0.2 %; HEMATOCRIT 43.7 % (42.0-52.0); HEMOGLOBIN 14.2 gm/dL (14.0-18.0); LYMPHOCYTES 10.7 %; MCH 27.2 pg (26.0-34.0); MCHC 32.5 g/dL (28.0-37.0); MCV 83.9 fL (80.0-100.0); MONOCYTES 9.2 %; MPV 7.8 fl. (7.2-11.1); NUCLEATED RBCS 0 /100WBC; PLATELET COUNT* 182 thou/uL (150-400); POLYS 79.9 %; RBC 5.21 mil/uL (4.50-6.00); WBC 9.7 thou/uL (4.0-11.0)
[2020-11-12 05:34] VITALS: BP 141/94
[2020-11-12 08:00] VITALS: BP 123/74
[2020-11-12 09:08] LABS: ANISOCYTOSIS 2+
[2020-11-12 12:00] VITALS: BP 109/62
[2020-11-12 20:00] VITALS: BP 108/59
[2020-11-13] VITALS (7 sets, daily range): BP systolic 98–110; BP diastolic 56–72
[2020-11-13 04:56] LABS: CALCIUM 8.7 mg/dL (8.5-10.1); CREATININE 0.8 mg/dL (0.6-1.3)
--- NOTE | 2020-11-13 21:48 | CON ---
[address] [address] CONSULTATION Name: ROLF SAMS Room: [address] IN M.R.#: [id number] Admission: 11/03/20 Attend Phys: Rohini Fulton Discharge: Date of : 67 Report #: [id number] THIS REPORT FOR: cc: LETA - No family physician/PCP LETA - No family physician/PCP Migue Ervin MD ~ DOC #: [id number] Migue Ervin MD DATE OF CONSULTATION: 11/06/2020 REQUESTING PHYSICIAN: Aristides Swenson MD INDICATION FOR CONSULTATION: Respiratory failure. HISTORY OF PRESENT ILLNESS: This is a 54-year-old gentleman. I have recently seen him in this hospital when he had a prolonged stay, he was on the ventilator. He does have a history of COPD as well as obstructive sleep apnea. He has a CPAP at home. I had recommended that this be switched over to a BiPAP, but it is not known to me if it was switched. He was transferred to rehab before going home and I last saw him, he was still being titrated on oxygen. He says he currently does not have oxygen at home. We had also diagnosed him with systolic congestive heart failure. The cardiology service had evaluated and had suspected that this was off and on ischemic etiologies. The patient is now again admitted on 11/03 presentation is with worsening respiratory failure. The patient complains of increasing shortness of breath. He has had a cough as well as. There is not much sputum. He does have some swelling of lower extremities. He has had chronic coughing. It is not significantly different from his baseline pain. He was not having chest pain. He did not describe any new upper respiratory complaints on admission. The patient did have altered mental status as well on initial presentation. I asked him 12 questions for review of systems now. He answers to the negative except as above. He has remained in decompensated respiratory failure. His pCO2 has been elevated up to 84 with pH of 7.278, has been maintaining O2 saturation even when off the BiPAP with this 3-4 liters nasal cannula. His blood pressure has been on the higher side. His bicarbonate is also significantly elevated. The patient was on a BiPAP of 18/8. when I saw him, he was generating tidal volumes of around 1500 mL. He has been on and off BiPAP since admission. PAST MEDICAL HISTORY: Chronic hypercarbic respiratory failure, COPD, obstructive sleep apnea, has a CPAP at home, not known to me as to whether that was switched to BiPAP or not. He says he does not have oxygen at home. Recent admission to the hospital with respiratory failure during which he had elevated [facility] [address] [place] [address] CONSULTATION Name: ROLF SAMS Room: [address] IN ..#: [id number] Admission: 11/03/20 Attend Phys: Rohini Fulton Discharge: Date of : 67 Report #: [id number] LFTs as well as acute renal failure and was found to have systolic congestive heart failure, chronicity of which was not fully apparent. Echocardiogram performed in August showed a left ventricular ejection fraction of 35-40%. The pulmonary artery systolic was elevated to 47. Venous Dopplers were negative at that time, the patient did not have a CTA chest performed. SOCIAL HISTORY: As of he is an active smoker, still smokes. No known history of heavy alcohol use or illegal drug use. CURRENT MEDICATIONS: List in [place] reviewed. HOME MEDICATIONS: List in [place] reviewed. FAMILY HISTORY: There is no pertinent family history known at this time. ALLERGIES: There are no known drug allergies. PHYSICAL EXAMINATION: GENERAL: He was drowsy, but fully arousable. VITAL SIGNS: He was on a BiPAP of 18/8 with 35% FiO2, O2 saturation was 97%, blood pressure 164/100, respiratory rate 24, sat rate 18, heart rate 83, temperature is 37.2. Body mass index 64. HEENT: Head is normocephalic and atraumatic. Pupils are equal and reactive. There is no throat erythema, narrow airway. NECK: Does not show raised JVP, asymmetry, mass or lymph nodes. CHEST: Symmetrical expansion on inspection and palpation. On auscultation, breath sounds are bilaterally equal, but decreased. Expirations are prolonged. HEART: Regular. There is no murmur. ABDOMEN: Soft and nontender. EXTREMITIES: Lower extremities show 1+ edema. There is calf tenderness present. There are crepe bandages in place bilaterally. NEUROLOGIC: He does move all extremities bilaterally equally and spontaneously with no focal deficit identified. DIAGNOSTIC DATA: The patient's chest x-ray is reviewed and I obtained another chest x-ray now as well. Primarily only showed chronic changes. LABORATORY DATA: The patient's lab work is in [facility] and this is also reviewed. Arterial blood gas is as discussed above. ASSESSMENT AND PLAN: 1. Acute on chronic hypoxemic and hypercarbic respiratory failure. The patient needs a BiPAP or Trilogy while asleep fdc, I recommend arranging the same before discharge if not already in place. For now, we will go [place] [address] CONSULTATION Name: ROLF SAMS Room: [address] IN ..#: [id number] Admission: 11/03/20 Attend Phys: Rohini Fulton Discharge: Date of : 67 Report #: [id number] him over to AVAPS mode, ordered an ABG, will readjust once this is available. Continue with the BiPAP in AVAPS mode while asleep and p.r.n. Also, continue oxygen. It appears likely the patient will need oxygen at least while asleep fdc upon discharge as well. 2. Chronic obstructive pulmonary disease exacerbation. We will continue Solu-Medrol, but I will cut back the dose. We will give him DuoNeb. We will also give budesonide and Brovana. Smoking cessation is strongly recommended. No large infiltrates identified in the patient's chest x-ray. We will only empirically covering with doxycycline for 5 days. 3. Chronic systolic congestive heart failure. Cardiology service is also on the case. He is on Aldactone and Lasix. I agree with the same. He is tolerating these well. Note that the patient's bicarb is significantly elevated on his labs. I obtained arterial blood gas, if the pH is normal or high now, then in that case, I will consider giving him Diamox. 4. Evaluation for thromboembolic phenomena. We will do venous Dopplers. 5. Deep venous thrombosis prophylaxis. He is on Lovenox. 6. Gastrointestinal prophylaxis. We will give him Pepcid while he is on high-dose steroid. 7. Clostridium difficile prophylaxis, Lactinex. Thanks for this consultation. MD DONN Wilson/DESTINY/SOT <ELECTRONICALLY SIGNED> By: Migue Ervin MD 11/13/20 2148 1643 2225Acourtney Ervin MD /nt
[2020-11-14 04:00] VITALS: BP 107/63
[2020-11-14 08:30] VITALS: BP 96/58
[2020-11-14 11:15] VITALS: BP 96/58
== END 2020-11-14 13:15 | disposition home or self-care (01) | DRG 291 ==
LOC: M.ERS 14:27 → M.TBA-ER 15:55 → M.2W 20:20
PROVIDERS: Emergency Medicine; Emergency Medicine Emergency Medical Services; Internal Medicine; Internal Medicine Cardiovascular Disease; Internal Medicine Critical Care Medicine; ADMIT Internal Medicine; ATTEND Internal Medicine
PROC: 5A09457 Assistance with Respiratory Ventilation, 24-96 Consecutive Hours, Continuous Positive Airway Pressure (ICD-10-PCS; principal; 2020-11-03)
PROC: 5A09357 Assistance with Respiratory Ventilation, Less than 24 Consecutive Hours, Continuous Positive Airway Pressure (ICD-10-PCS; 2020-11-05)
PROC: 5A09357 Assistance with Respiratory Ventilation, Less than 24 Consecutive Hours, Continuous Positive Airway Pressure (ICD-10-PCS; 2020-11-06)
PROC: 5A09357 Assistance with Respiratory Ventilation, Less than 24 Consecutive Hours, Continuous Positive Airway Pressure (ICD-10-PCS; 2020-11-07)
PROC: 5A09357 Assistance with Respiratory Ventilation, Less than 24 Consecutive Hours, Continuous Positive Airway Pressure (ICD-10-PCS; 2020-11-08)
PROC: 5A09357 Assistance with Respiratory Ventilation, Less than 24 Consecutive Hours, Continuous Positive Airway Pressure (ICD-10-PCS; 2020-11-09)
PROC: 5A09357 Assistance with Respiratory Ventilation, Less than 24 Consecutive Hours, Continuous Positive Airway Pressure (ICD-10-PCS; 2020-11-10)
PROC: 5A09357 Assistance with Respiratory Ventilation, Less than 24 Consecutive Hours, Continuous Positive Airway Pressure (ICD-10-PCS; 2020-11-11)
PROC: 5A09357 Assistance with Respiratory Ventilation, Less than 24 Consecutive Hours, Continuous Positive Airway Pressure (ICD-10-PCS; 2020-11-12)
PROC: 5A09357 Assistance with Respiratory Ventilation, Less than 24 Consecutive Hours, Continuous Positive Airway Pressure (ICD-10-PCS; 2020-11-13)
PROC: 5A09357 Assistance with Respiratory Ventilation, Less than 24 Consecutive Hours, Continuous Positive Airway Pressure (ICD-10-PCS; 2020-11-14)
DX: I11.0 Hypertensive heart disease with heart failure (principal); J96.21 Acute and chronic respiratory failure with hypoxia; J96.22 Acute and chronic respiratory failure with hypercapnia; G92 Toxic encephalopathy; J44.1 Chronic obstructive pulmonary disease with (acute) exacerbation; Z68.43 Body mass index [BMI] 50.0-59.9, adult; I50.43 Acute on chronic combined systolic (congestive) and diastolic (congestive) heart failure; I42.8 Other cardiomyopathies; G47.33 Obstructive sleep apnea (adult) (pediatric); E66.01 Morbid (severe) obesity due to excess calories; F15.10 Other stimulant abuse, uncomplicated; Z20.822 Contact with and (suspected) exposure to COVID-19; Z71.6 Tobacco abuse counseling; Z79.899 Other long term (current) drug therapy

== ENCOUNTER 2020-11-25 20:48 | Inpatient (IN) | payer MEDICAID ==
[~2020-11-25] VITALS: Ht 190.5 cm; Wt 178.0 kg
[2020-11-25 21:01] VITALS: BP 155/77
[2020-11-25 21:18] LABS: ABSOLUTE BASOPHILS 0.1 thou/uL (0.0-0.2); ABSOLUTE EOSINOPHILS 0.3 thou/uL (0.0-0.7); ABSOLUTE LYMPHOCYTES 1.4 thou/uL (0.8-5.3); ABSOLUTE MONOCYTES 0.6 thou/uL (0.0-1.2); ABSOLUTE NEUTROPHILS 7.8 thou/uL (1.6-8.1); BASOPHILS 1.2 %; EOSINOPHILS 2.9 %; HEMATOCRIT 36.8 % (42.0-52.0); HEMOGLOBIN 12.5 gm/dL (14.0-18.0); LYMPHOCYTES 13.3 %; MCH 28.5 pg (26.0-34.0); MCV 84.1 fL (80.0-100.0); MONOCYTES 5.6 %; MPV 8.8 fl. (7.2-11.1); NUCLEATED RBCS 0 /100WBC; PLATELET COUNT* 155 thou/uL (150-400); RBC 4.38 mil/uL (4.50-6.00); RDW-CV 20.5 % (10.5-14.5); WBC 10.1 thou/uL (4.0-11.0)
[2020-11-25 21:31] LABS: BE 0.9 mmol/L (-2 to +3); PCO2 48.8 mmHg (35.0-45.0); pH 7.361 (7.340-7.450)
[2020-11-25 21:32] LABS: CALCIUM 8.1 mg/dL (8.5-10.1); CREATININE 1.6 mg/dL (0.6-1.3); POTASSIUM 3.5 mmol/L (3.5-5.1)
[2020-11-25 21:39] LABS: PO2 370.1 mmHg (75.0-100.0)
[2020-11-25 21:43] LABS: MAGNESIUM 1.3 mg/dL (1.8-2.4); TOTAL BILIRUBIN 0.9 mg/dL (<0.1-1.0)
[2020-11-25 21:50] LABS: URINE BLOOD NEGATIVE (Negative); URINE GLUCOSE-RANDOM TRACE (Negative); URINE KETONES TRACE (Negative); URINE LEUKOCYTES-REFLEX NEGATIVE (Negative); URINE NITRITE-REFLEX NEGATIVE (Negative); URINE PROTEIN 2+ (Negative); URINE SPECIFIC GRAVITY >= 1.030 (1.005-1.030)
[2020-11-25 21:53] LABS: ICTOTEST (BILI CONFIRMATORY) Negative (Negative); URINE BILIRUBIN 1+ (Negative); URINE COLOR DK YELLOW
[2020-11-25 21:54] LABS: URINE CLARITY HAZY
[2020-11-25 21:55] LABS: SQUAMOUS 4-10 Moderate /LPF (0-3)
[2020-11-25 21:56] LABS: AMP/METHAMP POSITIVE (Negative); BACTERIA-REFLEX None Seen /HPF (None Seen); BARBITURATES Negative (Negative); BENZODIAZEPINES Negative (Negative); COCAINE Negative (Negative); CRYSTALS None Seen /LPF (None Seen); FINE GRANULAR CASTS 0-3 Few /LPF (None Seen); HYALINE CASTS 0-3 Few /LPF (None Seen); METHADONE Negative (Negative); MUCUS 0-3 Light strn/LPF (None Seen); OPIATES Negative (Negative); PCP Negative (Negative); THC Negative (Negative); URINE RBC None Seen /HPF (0-2); URINE WBC-REFLEX 0-5 Rare /HPF (0-5)
[2020-11-25 21:58] LABS: PLATELET ESTIMATE ADEQUATE
[2020-11-25 22:04] LABS: INR 1.1; PROTIME 11.9 Seconds (9.20-11.50)
[2020-11-26 02:10] VITALS: BP 122/70
[2020-11-26 02:20] VITALS: BP 117/69
[2020-11-26 02:50] LABS: BE 0.5 mmol/L (-2 to +3)
[2020-11-26 02:54] LABS: PCO2 79.1 mmHg (35.0-45.0); pH 7.193 (7.340-7.450)
[2020-11-26 05:08] LABS: PO2 87.8 mmHg (75.0-100.0)
[2020-11-26 05:13] LABS: pH 7.285 (7.340-7.450)
[2020-11-26 05:14] LABS: PCO2 64.9 mmHg (35.0-45.0)
--- NOTE | 2020-11-26 05:48 | NUR ---
RECEIVED PT FROM ED AT APPROX 0217. PT IS LETHARGIC, BARELY OPENS EYES WHEN NAME IS CALLED, BUT WOULD MOVE ARMS UP AND DOWN. PT IS ON 6L OF O2/NC. PT IS TRACING ST w/ BBB ON THE BENCH REPAIR TECHNICIAN. CRITICAL ABG'S RELAYED TO DR ROWELL, BIPAP STARTED ORDERED. PT IS CLOSELY MONITORED.
[2020-11-26 08:00] VITALS: BP 117/81
[2020-11-26 12:00] VITALS: BP 122/77
--- NOTE | 2020-11-26 12:52 | NUR ---
Pt PUI on enhanced precautions. CM was unable to reach Pt via phone or reach any of his emergency contacts. Pt reviewed Pt's chart, recently dc from this hospital on 11/14 to home with self care. Hx of non compliance. Pt has home o2. A&O. Independent. Pt tested positive for meth at admission. No hx of HH or SNF. Plan inpt for several days. CM following.
[2020-11-26 15:25] LABS: ABSOLUTE BASOPHILS 0.1 thou/uL (0.0-0.2); ABSOLUTE EOSINOPHILS 0.1 thou/uL (0.0-0.7); ABSOLUTE LYMPHOCYTES 2.4 thou/uL (0.8-5.3); ABSOLUTE MONOCYTES 0.6 thou/uL (0.0-1.2); ABSOLUTE NEUTROPHILS 3.4 thou/uL (1.6-8.1); BASOPHILS 0.8 %; EOSINOPHILS 1.2 %; HEMATOCRIT 33.6 % (42.0-52.0); HEMOGLOBIN 11.2 gm/dL (14.0-18.0); LYMPHOCYTES 36.8 %; MCH 28.7 pg (26.0-34.0); MCHC 33.4 g/dL (28.0-37.0); MCV 85.8 fL (80.0-100.0); MONOCYTES 9.2 %; MPV 9.4 fl. (7.2-11.1); NUCLEATED RBCS 0 /100WBC; PLATELET COUNT* 107 thou/uL (150-400); RBC 3.92 mil/uL (4.50-6.00); RDW-CV 20.2 % (10.5-14.5); WBC 6.5 thou/uL (4.0-11.0)
--- NOTE | 2020-11-26 15:26 | NUR ---
WOUND NURSE: BLE ASSESSED AT PATIENT'S NURSE'S REQUEST. CALF MEASUREMENTS X2 WAS 53.5 CM. CURRENTLY WITH FEW DRIED CRUSTS, NO OPEN WOUNDS NOTED AT THIS TIME. HYPERKERATOSIS ON BLE. HX OF LYMPHEDEMA. REQUIRES COMPRESSION TO HELP CONTROL SWELLING AND PREVENT WOUNDING. OBTAINED SIZE G TUBIGRIPS AND APPLIED DOUBLE LAYER TO BLE TOES TO KNEE. PATIENT SLEPT THROUGH APPLICATION AND DID NOT WAKE UP.
--- NOTE | 2020-11-26 15:33 | EKG ---
[place] [address] ELECTROCARDIOGRAM REPORT Name: ROLF SAMS Room: [address] IN ..#: [id number] Admission: 11/25/20 Attend Phys: Nisreen Edouard, Discharge: Date of : 67 Date of Service: 11/25/202057 Report #: [id number] THIS REPORT FOR: //name// [facility] ED Test Date: 2020-11-25 Test Time: 20:58:55 Pat Name: ROLF SAMS Department: Room: [facility] Gender: M Precinct Captain: ERICK : 1965 Requested By: Apple English Order Number: [id number] MD: Ramez Parker Measurements Intervals [place] Rate: 160 P: 246 [place]: 89 QRS: -49 QRSD: 148 T: 50 QT: 338 QTc: 552 Interpretive Statements Probable sinus tachycardia RBBB and LAFB Artifact in lead(s) I,II,aVR and baseline wander in lead(s) V1,V2 Compared to ECG 11/03/2020 14:50:54 Left anterior fascicular block now present Sinus tachycardia persists Electronically Signed On 11-26-2020 15:32:59 CDT by Ramez Parker [email or web address] <ELECTRONICALLY SIGNED> By: Ramez Parker MD, [facility] 11/26/20 1532 57 57 Raemz Parker MD, [facility] /EPI
--- NOTE | 2020-11-26 15:39 | EKG ---
[place] [address] ELECTROCARDIOGRAM REPORT Name: ROLF SAMS Room: [address] ADM IN ..#: [id number] Admission: 11/25/20 Attend Phys: Nisreen Edouard, Discharge: Date of : 67 Date of Service: 11/26/20 0041 Report #: [id number] THIS REPORT FOR: //name// [facility] ED Test Date: 2020-11-26 Test Time: 00:41:25 Pat Name: ROLF SAMS Department: Room: [address] Gender: M Director Of Solutions Architecture: [place] : 1965 Requested By: Apple English Order Number: [id number] MD: Ramez Parker Measurements Intervals [place] Rate: 142 P: 87 IN: 132 QRS: -42 QRSD: 152 T: 43 QT: 385 QTc: 592 Interpretive Statements Sinus tachycardia RBBB and LAFB Compared to ECG 11/25/2020 20:58:55 No significant changes Electronically Signed On 11-26-2020 15:39:07 CDT by Ramez Parker [email or web address] <ELECTRONICALLY SIGNED> By: Ramez Parker MD, [facility] 11/26/20 1539 0041 0041 Ramez Parker MD, [facility] /EPI
[2020-11-26 15:51] LABS: ALBUMIN 2.2 g/dL (3.4-5.0); CALCIUM 7.5 mg/dL (8.5-10.1); CREATININE 1.2 mg/dL (0.6-1.3); DIRECT BILIRUBIN 0.1 mg/dL (<0.1-0.3); POTASSIUM 4.2 mmol/L (3.5-5.1); TOTAL BILIRUBIN 0.6 mg/dL (<0.1-1.0); TOTAL PROTEIN 5.6 g/dL (6.4-8.2)
[2020-11-26 20:00] VITALS: BP 97/56
[2020-11-27 00:22] VITALS: BP 112/76
--- NOTE | 2020-11-27 04:23 | NUR ---
ASSUMED PT CARE AT APPROX 1930. PT IS LETHARGIC BUT IS AROUSABLE, ORIENTED TO SELF, AND PLACE AND SITUATION. PT IS NOT IN DISTRESS, NO DESATURATIONS NOTED ON 6L OF O2/NC. PT IS ON THE BIPAP MOST OF THE NIGHT. NO ACUTE CHANGES THIS SHIFT. CALL LIGHT WITHIN REACH. HOURLY ROUNDING DONE FOR PT SAFETY. HIGH FALL PRECAUTIONS IN PLACE.
[2020-11-27 04:34] VITALS: BP 111/85
[2020-11-27 08:00] VITALS: BP 120/79
[2020-11-27 08:30] LABS: ANION GAP < 0 mmol/L (7-16); CHLORIDE 105 mmol/L (98-107); CO2 35 mmol/L (21-32); POTASSIUM 4.4 mmol/L (3.5-5.1); SODIUM 139 mmol/L (136-145)
--- NOTE | 2020-11-27 08:51 | NUR ---
cm attempted to contact pt and his contacts. there were no answer on either phones.
[2020-11-27 11:52] VITALS: BP 94/59
[2020-11-27 18:32] VITALS: BP 103/64
[2020-11-27 20:00] VITALS: BP 109/67
[2020-11-28 01:23] VITALS: BP 94/62
[2020-11-28 04:23] VITALS: BP 102/68
--- NOTE | 2020-11-28 06:57 | NUR ---
ASSUMED CARE OF PT AFTER REPORT AT 1930. PT A&OX4. VSS. PHYSICAL ASSESSMENT COMPLETED AND CHARTED. PT ON O2 AT 6LNC/BIPAP 30%. PT TRACING SR/ST/BBB/PVC ON TELE. PT DENIES ANY PAIN. PT ABLE TO SLEEP WELL ON BED. MAINTAINED ON ENHANCED PRECAUTION-PENDING COVID PCR. FALL PRECAUTIONS IN PLACE. CALL LIGHT WITHIN REACH.
[2020-11-28 08:00] VITALS: BP 116/66
[2020-11-28 13:06] VITALS: BP 123/73
--- NOTE | 2020-11-28 15:59 | NUR ---
Barriers to discharge New blood clots found and tx required. Will continue to follow for any discharge needs. None anticipated at this time.
[2020-11-28 17:02] VITALS: BP 123/58
[2020-11-28 20:00] VITALS: BP 124/71
[2020-11-29 00:07] VITALS: BP 123/90
--- NOTE | 2020-11-29 04:02 | NUR ---
ASSUMED CARE OF PT AFTER REPORT AT 1930. PT A&OX4. VSS. PHYSICAL ASSESSMENT COMPLETED AND CHARTED. PT ON O2 AT 5LNC/BIPAP. PT TRACING SR/ST/BBB/PVC ON TELE. PT WITH GRIGGS TO DEPENDENT DRAIN. PT DENIES ANY PAIN. FALL PRECAUTIONS IN PLACE. CALL LIGHT WITHIN REACH.
[2020-11-29 04:12] VITALS: BP 145/95
[2020-11-29 05:05] LABS: HEMATOCRIT 33.8 % (42.0-52.0); HEMOGLOBIN 11.5 gm/dL (14.0-18.0); MCH 28.8 pg (26.0-34.0); MCHC 33.9 g/dL (28.0-37.0); MPV 8.4 fl. (7.2-11.1); RBC 3.98 mil/uL (4.50-6.00); RDW-CV 20.2 % (10.5-14.5); WBC 3.5 thou/uL (4.0-11.0)
[2020-11-29 05:31] LABS: CALCIUM 7.9 mg/dL (8.5-10.1); CREATININE 0.8 mg/dL (0.6-1.3); POTASSIUM 3.9 mmol/L (3.5-5.1)
[2020-11-29 07:39] LABS: BE 1.8 mmol/L (-2 to +3); PO2 74.9 mmHg (75.0-100.0); pH 7.343 (7.340-7.450)
[2020-11-29 07:41] LABS: PCO2 53.5 mmHg (35.0-45.0)
[2020-11-29 08:00] VITALS: BP 148/97
--- NOTE | 2020-11-29 11:40 | NUR ---
barriers to d/c: pt o2 is down to 4l, pt possibly could d/c tomorrow. will need ex ox.
[2020-11-29 12:00] VITALS: BP 131/87
[2020-11-29 16:00] VITALS: BP 133/106
--- NOTE | 2020-11-29 18:00 | NUR ---
ASSUMED PT CARE AT 0730, PT AOX4, VERY SLEEPY, SWITCHES BETWEEN BIPAP AND NC THROUGHOUT DAY WHEN AWAKE AND NAPPING. PT GOT UP TO SIDE OF BED TO EAT. COVID NEGATIVE SO PT TRANSFERRED TO ROOM 218 VIA BED AT APPROX 1745, REPORT GIVEN TO KELLY HUGHES.
[2020-11-30 00:41] VITALS: BP 138/72
--- NOTE | 2020-11-30 03:23 | NUR ---
ASSUMED CARE OF PT AT 1900. PT IS ALERT AND ORIENTED. VSS. PERRLA. NO COMPLAINTS OF PAIN. PT IS ON 4 LITERS O2. PT IS IN SINUS RYTHM ON THE TELEMETRY. PT IS RESTING COMFORTABLY IN BED. RESPIRATIONS ARE EVEN AND NONLABORED. WILL CONTINUE TO MONITOR PT.
[2020-11-30 03:58] VITALS: BP 130/70
[2020-11-30 04:34] LABS: HEMOGLOBIN 11.1 gm/dL (14.0-18.0); MCH 28.1 pg (26.0-34.0); MCHC 33.7 g/dL (28.0-37.0); MCV 83.3 fL (80.0-100.0); MPV 8.5 fl. (7.2-11.1); RBC 3.97 mil/uL (4.50-6.00); WBC 3.2 thou/uL (4.0-11.0)
[2020-11-30 04:39] LABS: CALCIUM 8.2 mg/dL (8.5-10.1); CREATININE 0.7 mg/dL (0.6-1.3); POTASSIUM 4.4 mmol/L (3.5-5.1)
[2020-11-30 08:00] VITALS: BP 127/86
[2020-11-30 12:15] VITALS: BP 136/84
[2020-11-30 15:28] LABS: PO2 92.2 mmHg (75.0-100.0); pH 7.402 (7.340-7.450)
[2020-11-30 17:14] VITALS: BP 146/100
[2020-11-30 19:30] VITALS: BP 166/93
[2020-12-01 00:18] VITALS: BP 148/94
[2020-12-01 03:54] VITALS: BP 152/103
--- NOTE | 2020-12-01 05:24 | NUR ---
PT SLEPT MOST OF SHIFT. ASSESSMENT DOCUMENTED. MEDS GIVEN PER E-MAR. IV PATENT. NO REPORTS OF PAIN. PT WORE BIPAP THIS SHIFT. FALL PRECAUTIONS IN PLACE. PT ABLE TO MAKE NEEDS KNOWN. WILL CONTINUE WITH PLAN OF CARE.
[2020-12-01 09:00] VITALS: BP 146/104
[2020-12-01 12:25] VITALS: BP 145/94
[2020-12-01 16:00] VITALS: BP 148/84
[2020-12-01 19:59] VITALS: BP 142/84
[2020-12-02] VITALS: BP 141/89
[2020-12-02 03:22] VITALS: BP 143/84
[2020-12-02 04:33] LABS: CREATININE 0.8 mg/dL (0.6-1.3); POTASSIUM 3.8 mmol/L (3.5-5.1)
[2020-12-02 05:01] LABS: HEMOGLOBIN 11.6 gm/dL (14.0-18.0); MCH 28.5 pg (26.0-34.0); MCV 84.1 fL (80.0-100.0); MPV 8.4 fl. (7.2-11.1); RBC 4.05 mil/uL (4.50-6.00); RDW-CV 19.8 % (10.5-14.5); WBC 4.9 thou/uL (4.0-11.0)
--- NOTE | 2020-12-02 05:54 | NUR ---
PT A&OX4, VSS ON 3L NC - BIPAP WHILE SLEEPING. SR/SB WITH BBB ON TELE MONITOR. URINARY CATHETER IN PLACE. IV FLUIDS INFUSING ORDERED. NO CO PAIN OR DISCOMFORT THIS SHIFT. PT SLEEPING WELL. WILL CONTINUE TO MONITOR.
[2020-12-02 12:00] VITALS: BP 153/99
--- NOTE | 2020-12-02 12:37 | NUR ---
PLAN OF CARE: PHYSICIAN INFORMS THAT THE PT MAY BE CLOSE TO BEING MEDICALLY STABLE FOR D/C. PT REMAINS ON 3L O2. NO CM D/C PLANNING NEEDS AT THIS TIME. CM WILL REMAIN AVAILABLE TO ASSIST AND FOLLOW NEEDED.
[2020-12-02 16:00] VITALS: BP 141/88
[2020-12-02 19:58] VITALS: BP 130/82
[2020-12-03 03:50] VITALS: BP 152/96
--- NOTE | 2020-12-03 04:29 | NUR ---
PT A&OX44, VSS ON 4L O2 - BIPAP WHILE SLEEPING. IV SALINE LOCKED. URINARY CATHETER IN PLACE. SR WITH BBB ON TELE MONITOR. NO CO PAIN OR DISCOMFORT THIS SHIFT. WILL CONTINUE TO MONITOR.
[2020-12-03 05:14] LABS: ABSOLUTE LYMPHOCYTES 1.3 thou/uL (0.8-5.3); ABSOLUTE MONOCYTES 0.4 thou/uL (0.0-1.2); ABSOLUTE NEUTROPHILS 3.2 thou/uL (1.6-8.1); BASOPHILS 0.6 %; EOSINOPHILS 0.1 %; HEMATOCRIT 34.5 % (42.0-52.0); HEMOGLOBIN 11.6 gm/dL (14.0-18.0); LYMPHOCYTES 26.7 %; MCH 27.9 pg (26.0-34.0); MCHC 33.7 g/dL (28.0-37.0); MONOCYTES 7.5 %; MPV 7.6 fl. (7.2-11.1); NUCLEATED RBCS 0 /100WBC; PLATELET COUNT* 108 thou/uL (150-400); POLYS 65.1 %; RBC 4.15 mil/uL (4.50-6.00); RDW-CV 19.8 % (10.5-14.5); WBC 4.9 thou/uL (4.0-11.0)
[2020-12-03 05:29] LABS: ALBUMIN 2.4 g/dL (3.4-5.0); CALCIUM 8.1 mg/dL (8.5-10.1); CREATININE 0.9 mg/dL (0.6-1.3); MAGNESIUM 1.5 mg/dL (1.8-2.4); POTASSIUM 3.6 mmol/L (3.5-5.1); TOTAL BILIRUBIN 0.5 mg/dL (<0.1-1.0); TOTAL PROTEIN 5.9 g/dL (6.4-8.2)
--- NOTE | 2020-12-03 07:45 | NUR ---
CHANGE OF SHIFT REPORT GIVEN PATIENT IN BED ON BIPAP ASLEEP ASSUMED PATIENT CARE
[2020-12-03 08:00] VITALS: BP 139/89
[2020-12-03 11:53] VITALS: BP 133/77
--- NOTE | 2020-12-03 13:01 | NUR ---
PLAN OF CARE: PHYSICIAN INFORMS THAT THE PT IS NOT MEDICALLY STABLE AT THIS TIME, BUT MAY BE CLOSER TO D/C POSSIBLY TOMORROW. CM D/C PLANNING TBD. CM WILL REMAIN AVAILABLE TO ASSIST AND FOLLOW NEEDED.
[2020-12-03 16:00] VITALS: BP 133/80
[2020-12-03 20:00] VITALS: BP 136/82
[2020-12-04] VITALS: BP 137/85
[2020-12-04 04:00] VITALS: BP 142/88
[2020-12-04 04:22] LABS: ABSOLUTE LYMPHOCYTES 1.2 thou/uL (0.8-5.3); ABSOLUTE MONOCYTES 0.4 thou/uL (0.0-1.2); ABSOLUTE NEUTROPHILS 2.8 thou/uL (1.6-8.1); BASOPHILS 0.2 %; EOSINOPHILS 0.1 %; HEMATOCRIT 35.3 % (42.0-52.0); HEMOGLOBIN 11.8 gm/dL (14.0-18.0); LYMPHOCYTES 26.9 %; MCH 28.1 pg (26.0-34.0); MCHC 33.5 g/dL (28.0-37.0); MONOCYTES 8.7 %; MPV 8.5 fl. (7.2-11.1); NUCLEATED RBCS 0 /100WBC; PLATELET COUNT* 114 thou/uL (150-400); POLYS 64.1 %; WBC 4.3 thou/uL (4.0-11.0)
[2020-12-04 04:36] LABS: ALBUMIN 2.5 g/dL (3.4-5.0); CREATININE 0.8 mg/dL (0.6-1.3); MAGNESIUM 1.7 mg/dL (1.8-2.4); POTASSIUM 4.1 mmol/L (3.5-5.1); TOTAL BILIRUBIN 0.6 mg/dL (<0.1-1.0); TOTAL PROTEIN 6.2 g/dL (6.4-8.2)
--- NOTE | 2020-12-04 04:44 | NUR ---
PATIENT SLEPT WELL DURING THIS SHIFT. PT TURNED Q2H PER PROTOCAL UNLESS REFUSED. PT WITH GRIGGS TO DEPENDENT DRAIN WITH YELLOW URINE. PT ON O2 @ 4 LITERS PER NASAL CANNULA AND BIPAP AT NIGHT. PT ALSO HAS BIPAP AT HOME. PT UP WITH AUREA SOTO AND MAX OF ONE. PT IS SALINE LOCKED. 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 FREQUENTLY USED ITEMS AND CALL LIGHT WITHIN REACH. SIDERAILS UPX3 AND BED ALARM ON. WILL CONTINUE TO MONITOR.
[2020-12-04 07:02] LABS: ANISOCYTOSIS 1+; PLATELET ESTIMATE ADEQUATE
[2020-12-04 08:00] VITALS: BP 137/91
[2020-12-04 11:59] VITALS: BP 141/79
--- NOTE | 2020-12-04 15:06 | NUR ---
PLAN OF CARE: PHYSICIAN INFORMS OF PLAN FOR THE PT TO REMAIN INPT TODAY. PULM CONSULTED AND AWAITING RECOMMENDATIONS. CM WILL REMAIN AVAILABLE TO ASSIST AND FOLLOW NEEDED.
[2020-12-04 16:26] LABS: URINE BILIRUBIN NEGATIVE (Negative); URINE BLOOD TRACE (Negative); URINE CLARITY CLEAR; URINE COLOR YELLOW; URINE GLUCOSE-RANDOM NEGATIVE (Negative); URINE KETONES NEGATIVE (Negative); URINE LEUKOCYTES-REFLEX NEGATIVE (Negative); URINE NITRITE-REFLEX NEGATIVE (Negative); URINE PROTEIN NEGATIVE (Negative); URINE UROBILINOGEN 0.2 E.U./dl (0.2-1.0)
[2020-12-04 20:00] VITALS: BP 140/86
[2020-12-05] VITALS (7 sets, daily range): BP systolic 128–138; BP diastolic 76–86
[2020-12-05 04:23] LABS: MCH 28.1 pg (26.0-34.0); MCHC 33.4 g/dL (28.0-37.0); MCV 84.2 fL (80.0-100.0); MPV 7.6 fl. (7.2-11.1); NUCLEATED RBCS 0 /100WBC; PLATELET COUNT* 125 thou/uL (150-400); RBC 4.64 mil/uL (4.50-6.00); RDW-CV 20.3 % (10.5-14.5); WBC 5.3 thou/uL (4.0-11.0)
--- NOTE | 2020-12-05 04:26 | NUR ---
PATIENT SLEPT WELL DURING THIS SHIFT. PT ABLE TO REPOSITOIN HIMSELF IN BED. PT VOIDS PER URINAL. PT ON 02 @ 3 LITERS PER NASAL CANNULA AND BIPAP AT NIGHT. PT SR W/BBB ON CARIDAC MONITOR. PT DENIES PAIN/NAUSEA DURING THIS SHIFT. PT IS SALINE LOCKED. DENIES NEEDS AT THIS TIME. FREQUENTLY USED ITEMS AND CALL LIGHT WITHIN REACH. SIDERAILS UPX2 AND BED ALARM ON. WILL CONTINUE TO MONITOR.
[2020-12-05 04:34] LABS: CALCIUM 8.2 mg/dL (8.5-10.1); CREATININE 0.9 mg/dL (0.6-1.3); POTASSIUM 4.1 mmol/L (3.5-5.1)
[2020-12-05 05:48] LABS: ABSOLUTE BASOPHILS 0.1 thou/uL (0.0-0.2); ABSOLUTE LYMPHOCYTES 1.2 thou/uL (0.8-5.3); ABSOLUTE MONOCYTES 0.1 thou/uL (0.0-1.2); ABSOLUTE NEUTROPHILS 3.9 thou/uL (1.6-8.1); ANISOCYTOSIS 1+; PLATELET ESTIMATE DECREASED; POIKILOCYTOSIS 1+
[2020-12-05] MEDS ORDERED: DOXYCYCLINE 10100 MG PO (12:28)
--- NOTE | 2020-12-05 15:20 | NUR ---
PLAN FOR THE PT TO D/C HOME TODAY WITH SELF-CARE. PT REQUEST CAB VOUCHER TO [facility]. LATER PT'S INFORMS THIS CM THAT HE HAS ANOTHER PLACE TO GO AND PROVIDED CM HOME ADDRESS.CM ARRANGE CAB TO ADDRESS GIVEN. CM INFORMED RN. CM WILL REMAIN AVAILABLE TO ASSIST AND FOLLOW NEEDED.
== END 2020-12-05 14:15 | disposition home or self-care (01) | DRG 177 ==
LOC: M.ERS 20:48 → M.TBA-ER 22:34 → M.ORTHSURG 11-26 02:10 → M.2W 11-29 17:59
PROVIDERS: Emergency Medicine; Internal Medicine; Internal Medicine Critical Care Medicine; ADMIT Internal Medicine; ATTEND Internal Medicine
PROC: 5A0935A Assistance with Respiratory Ventilation, Less than 24 Consecutive Hours, High Flow/Velocity Cannula (ICD-10-PCS; principal; 2020-11-26)
PROC: 5A09357 Assistance with Respiratory Ventilation, Less than 24 Consecutive Hours, Continuous Positive Airway Pressure (ICD-10-PCS; principal; 2020-11-26)
PROC: 5A09357 Assistance with Respiratory Ventilation, Less than 24 Consecutive Hours, Continuous Positive Airway Pressure (ICD-10-PCS; 2020-11-27)
PROC: 5A0935A Assistance with Respiratory Ventilation, Less than 24 Consecutive Hours, High Flow/Velocity Cannula (ICD-10-PCS; 2020-11-27)
PROC: 5A0935A Assistance with Respiratory Ventilation, Less than 24 Consecutive Hours, High Flow/Velocity Cannula (ICD-10-PCS; 2020-11-28)
PROC: 5A09357 Assistance with Respiratory Ventilation, Less than 24 Consecutive Hours, Continuous Positive Airway Pressure (ICD-10-PCS; 2020-11-28)
PROC: 5A09357 Assistance with Respiratory Ventilation, Less than 24 Consecutive Hours, Continuous Positive Airway Pressure (ICD-10-PCS; 2020-11-29)
PROC: 5A09357 Assistance with Respiratory Ventilation, Less than 24 Consecutive Hours, Continuous Positive Airway Pressure (ICD-10-PCS; 2020-11-30)
PROC: 5A09357 Assistance with Respiratory Ventilation, Less than 24 Consecutive Hours, Continuous Positive Airway Pressure (ICD-10-PCS; 2020-12-01)
PROC: 5A09357 Assistance with Respiratory Ventilation, Less than 24 Consecutive Hours, Continuous Positive Airway Pressure (ICD-10-PCS; 2020-12-03)
PROC: 5A09357 Assistance with Respiratory Ventilation, Less than 24 Consecutive Hours, Continuous Positive Airway Pressure (ICD-10-PCS; 2020-12-04)
PROC: 5A09357 Assistance with Respiratory Ventilation, Less than 24 Consecutive Hours, Continuous Positive Airway Pressure (ICD-10-PCS; 2020-12-05)
DX: J15.6 Pneumonia due to other Gram-negative bacteria (principal); G92 Toxic encephalopathy; J96.21 Acute and chronic respiratory failure with hypoxia; G93.41 Metabolic encephalopathy; N17.0 Acute kidney failure with tubular necrosis; J96.22 Acute and chronic respiratory failure with hypercapnia; I50.43 Acute on chronic combined systolic (congestive) and diastolic (congestive) heart failure; F10.139 Alcohol abuse with withdrawal, unspecified; E87.3 Alkalosis; I42.9 Cardiomyopathy, unspecified; J44.1 Chronic obstructive pulmonary disease with (acute) exacerbation; E46 Unspecified protein-calorie malnutrition; E87.1 Hypo-osmolality and hyponatremia; Z68.42 Body mass index [BMI] 45.0-49.9, adult; J44.0 Chronic obstructive pulmonary disease with (acute) lower respiratory infection; G47.33 Obstructive sleep apnea (adult) (pediatric); E66.01 Morbid (severe) obesity due to excess calories; R50.2 Drug induced fever; F15.10 Other stimulant abuse, uncomplicated; F17.210 Nicotine dependence, cigarettes, uncomplicated; F10.129 Alcohol abuse with intoxication, unspecified; D64.9 Anemia, unspecified; D69.6 Thrombocytopenia, unspecified; B95.7 Other staphylococcus as the cause of diseases classified elsewhere; Z20.822 Contact with and (suspected) exposure to COVID-19